=== PATIENT | male | born 1970 | race Caucasian/White ===

== ENCOUNTER → 2016-08-02 | Outpatient (CLI) | payer BC ==
[~2016-08-02] MED LIST: ADVIN50050; ALBU1AER9; CZR50 PO; FLNIN NAE; MONT1TAB3 PO; MULT-506 PO; OMEG10007 PO; OMEP40CA41 PO; SNG10 PO; SYMIN160 INH; VNTHFA/IN INH; ZNTT/150 PO
== END | disposition home or self-care (01) ==
LOC: C.LABBFT 07:43
PROVIDERS: ATTEND Podiatrist
DX: B35.1 Tinea unguium (principal)

== ENCOUNTER 2017-01-23 15:39 | Emergency (ER) | payer BC, OTHER ==
[~2017-01-23] VITALS: Ht 180.3 cm; Wt 92.8 kg
[~2017-01-23 15:39] MED LIST changes: -CZR50 PO; -MONT1TAB3 PO; -MULT-506 PO; -OMEG10007 PO; -OMEP40CA41 PO; -SYMIN160 INH; -VNTHFA/IN INH
[2017-01-23 15:44] VITALS: TEMP 37; Ht 180.3 cm; Wt 92.8 kg
[2017-01-23] MEDS ORDERED: ALUMINUM/MAGNESIUM SUSP 30 ML UDC PO STA (17:41)
[2017-01-23] MEDS ORDERED: PANTOprazole SOD 40 MG TAB PO STA (17:41)
[2017-01-23 17:49] VITALS: O2SAT 95
--- NOTE | 2017-01-23 18:03 | EMERGENCY ROOM VISIT NOTE ---
History Report prepared by Alexa: Nanette Guevara Under the Supervision of: Dr. William Nagel D.O. First contact with patient: 17:15 Chief Complaint: CHEST PAIN Stated Complaint: CHEST PAIN - TROUBLE BREATHING Nursing Triage Summary: Patient has a history of asthma; thought he had a chest cold as he was short of breath more than normal; he has a nonproductive and dry cough. Patient developed chest pains about a week ago that come and go throughout the day. Patient reports that the pain is a pressure, sometimes a stabbing sensation in the center of his chest. The pain will sometimes radiate into both of his shoulders. Patient believes it could be anxiety related. History of Present Illness The patient is a 62 year old male who presents to the Emergency Room with complaints of intermittent chest tightness beginning 1 week ago. The patient states that he has been having chest pain that moves from the center of his chest to the left side and occasionally radiates to the left arm. He reports that his arm pain is a dull ache and is currently present. He notes that he has a history of asthma and has been using his inhaler more frequently as he has had shortness of breath that is worse with exertion. The patient states that his chest pain has been coming every few hours and happens a few times a day. He complains of shortness of breath and cough. He notes that he has been having worsened hypertension for the last 6 weeks. He denies any recent trips, back pain, and vomiting. The patient states that he has a history of GERD. He reports that his father had a stent placed when he was in his 60s. Source of History: patient Onset: 1 week ago Position: chest Quality: other (tightness) Modifying Factors (Worsening): exertion Associated Symptoms: + SOB, No vomiting, No back pain Note: Pt complains of left arm pain. He denies any recent trips. Review of Systems See HPI for pertinent positives & negatives. A total of 10 systems reviewed and were otherwise negative. Past Medical & Surgical Medical Problems: (1) Asthma Family History Stent Social History Smoking Status: Never Smoker Smokeless Tobacco Use: No Alcohol Use: occasionally Drug Use: none Marital Status: single Housing Status: lives with family Occupation Status: employed Current/Historical Medications Scheduled Budesonide/Formoterol Fumarate (Symbicort 160/4.5 Inhaler ), 2 PUFFS INH BID Fish Oil ([place]-3), 1 CAP PO AMPM Montelukast Sodium (Singulair), 10 MG PO DAILY Multivitamin (Multivitamin), 1 TAB PO DAILY Omeprazole (Prilosec), 40 MG PO DAILY Ranitidine (Zantac), 150 MG PO DAILY Scheduled PRN Albuterol Hfa (Ventolin Hfa), 2 PUFFS INH Q6H PRN for SOB/Wheezing Allergies Coded Allergies: No Known Allergies (Unverified , 01/23/17) Physical Exam Vital Signs Date Time Temp Pulse Resp B/P (MAP) Pulse Ox O2 Delivery O2 Flow Rate FiO2 01/23/17 20:00 62 15 125/83 98 01/23/17 19:15 69 01/23/17 18:32 68 20 132/79 98 Room Air 01/23/17 17:49 95 Room Air 01/23/17 17:48 95 Room Air 01/23/17 15:44 37.0 76 18 146/87 95 Room Air 01/23/17 15:44 95 Room Air Physical Exam GENERAL: Patient is awake, alert, and in no acute distress. Patient is resting comfortably and showing no signs of anxiety EYES: The conjunctivae are clear. The pupils are round and reactive. EARS, NOSE, MOUTH AND THROAT: The nose is without any evidence of any deformity. Mucous membranes are moist tongue is midline NECK: The neck is nontender and supple. RESPIRATORY: Normal respiratory effort is noted there is no evidence of wheezing rhonchi or rales CARDIOVASCULAR: Regular rate and rhythm noted there no murmurs rubs or gallops normal S1 normal S2 GASTROINTESTINAL: The abdomen is soft. Bowel sounds are present in all quadrants. Abdomen is nontender MUSCULOSKELETAL/EXTREMITIES: There is no evidence of gross deformity full range of motion is noted in the hips and shoulders SKIN: There is no obvious evidence of any rash. There are no petechiae, pallor or cyanosis noted. NEUROLOGIC: Patient is awake alert and oriented x3 Medical Decision & Procedures ER Provider Diagnostic Interpretation: X-ray results as stated below per interpretation by me and the radiologist. CHEST ONE VIEW PORTABLE FINDINGS: The heart is normal in size. There is mild hyperexpansion. There is no focal pulmonary consolidation. There is no failure. There are no pleural effusions. There is mild chronic prominence of the left hilum.[ IMPRESSION: No active disease in the chest. Electronically signed by: Dion Browning M.D. 01/23/2017 6:23 PM Dictated Date/Time: 01/23/2017 6:21 PM Laboratory Results 01/23/17 18:18 Red Blood Count 5.33, Mean Corpuscular Volume 85.9, Mean Corpuscular Hemoglobin 29.3, Mean Corpuscular Hemoglobin Concent 34.1, Mean Platelet Volume 9.7, Neutrophils (%) (Auto) 61.7, Lymphocytes (%) (Auto) 26.5, Monocytes (%) (Auto) 7.3, Eosinophils (%) (Auto) 3.5, Basophils (%) (Auto) 0.8, Neutrophils # (Auto) 3.86, Lymphocytes # (Auto) 1.66, Monocytes # (Auto) 0.46, Eosinophils # (Auto) 0.22, Basophils # (Auto) 0.05 01/23/17 18:18 Test 01/23/17 18:18 01/23/17 18:23 White Blood Count 6.26 K/uL (4.8-10.8) Red Blood Count 5.33 M/uL (4.7-6.1) Hemoglobin 15.6 g/dL (14.0-18.0) Hematocrit 45.8 % (42-52) Mean Corpuscular Volume 85.9 fL (80-100) Mean Corpuscular Hemoglobin 29.3 pg (25-34) Mean Corpuscular Hemoglobin Concent 34.1 g/dl (32-36) Platelet Count 172 K/uL (130-400) Mean Platelet Volume 9.7 fL (7.4-10.4) Neutrophils (%) (Auto) 61.7 % Lymphocytes (%) (Auto) 26.5 % Monocytes (%) (Auto) 7.3 % Eosinophils (%) (Auto) 3.5 % Basophils (%) (Auto) 0.8 % Neutrophils # (Auto) 3.86 K/uL (1.4-6.5) Lymphocytes # (Auto) 1.66 K/uL (1.2-3.4) Monocytes # (Auto) 0.46 K/uL (0.11-0.59) Eosinophils # (Auto) 0.22 K/uL (0-0.5) Basophils # (Auto) 0.05 K/uL (0-0.2) RDW Standard Deviation 38.9 fL (36.4-46.3) RDW Coefficient of Variation 12.2 % (11.5-14.5) Immature Granulocyte % (Auto) 0.2 % Immature Granulocyte # (Auto) 0.01 K/uL (0.00-0.02) Anion Gap 9.0 mmol/L (3-11) Est Creatinine Clear Calc Drug Dose 120.6 ml/min Estimated GFR () 119.1 Estimated GFR (Non- 102.8 BUN/Creatinine Ratio 23.9 (10-20) Calcium Level 9.3 mg/dl (8.5-10.1) Total Bilirubin 0.6 mg/dl (0.2-1) Direct Bilirubin 0.1 mg/dl (0-0.2) Aspartate Amino Transf (AST/SGOT) 20 U/L (15-37) Alanine Aminotransferase (ALT/SGPT) 36 U/L (12-78) Alkaline Phosphatase 92 U/L (45-117) Total Protein 6.7 gm/dl (6.4-8.2) Albumin 3.8 gm/dl (3.4-5.0) Lipase 66 U/L (73-393) Bedside Troponin I < 0.030 ng/ml (0-0.045) Laboratory results per my review. Medications Administered Medications (Trade) Dose Ordered Sig/Angela Route Start Time Stop Time Status Last Admin Dose Admin Al Hydroxide/Mg Hydroxide (Maalox Susp) 30 ml NOW STAT PO 01/23/17 17:41 01/23/17 17:44 DC 01/23/17 18:33 30 ML Pantoprazole Sodium (Protonix Tab) 40 mg NOW STAT PO 01/23/17 17:41 01/23/17 17:44 DC 01/23/17 18:33 40 MG ECG Indication: chest pain Rate (beats per minute): 69 Rhythm: normal sinus Findings: no ectopy, other (no ST segment abnormalities) Comparison ECG Date: 12/02/09 Change: no significant change ED Course 1714: The patient was evaluated in room C10. A complete history and physical examination were performed. 1740: Protonix Tab 40mg PO, Maalox Susp 30ml PO. 1919: I reevaluated and updated the patient. He is ready to go home. 1924: Upon reevaluation, the patient is doing well. I discussed the results and treatment plan with the patient. He verbalized agreement of the treatment plan. The patient was discharged home. Medical Decision Differential diagnosis: Etiologies such as cardiac ischemia, aortic dissection, pulmonary embolism, pneumonia, pneumothorax, musculoskeletal, infections, pericarditis, myocarditis , esophageal rupture, gastrointestinal, as well as others were entertained. The patient has a heart score of 2. Medication Reconciliation: I attest that I have personally reviewed the patient' s current medications list. Blood pressure screening: Patient was found to have an elevated blood pressure and was referred to their primary doctor for recheck and further treatment. The patient is a 46-year-old male who presented to the emergency department for an evaluation of chest discomfort. The patient's chest pain was not exertional. The patient's EKG did not show any acute change or previous. I discussed the patient's laboratory and radiographic studies with him. I also discussed the limitations of the emergency department workup for chest pain. At this time his presentation does not appear to be consistent with an acute coronary syndrome. I recommended that he rest and avoid any strenuous activity. He was also encouraged to call his family doctor in the morning to schedule a follow-up appointment and likely a provocative stress test. He was also encouraged to return to the emergency Department immediately if symptoms change worsen or the need arises. Impression Primary Impression: Left sided chest pain Scribe Attestation The scribe's documentation has been prepared under my direction and personally reviewed by me in its entirety. I confirm that the note above accurately reflects all work, treatment, procedures, and medical decision making performed by me. Departure Information Dispostion Home / Self-Care Prescriptions Omeprazole (PRILOSEC) 40 Mg Cap 40 MG PO DAILY, #30 CAP Prov: William Nagel, DO 01/23/17 Referrals Rodolfo Bhat M.D. (PCP) Forms HOME CARE DOCUMENTATION FORM, IMPORTANT VISIT INFORMATION Patient Instructions ED Chest Pain Atypical Unkn Cause, My [facility] Additional Instructions Call your family doctor in the morning to schedule a follow-up appointment. You may require further studies such as a stress test to further evaluate the cause of your chest pain. Avoid any strenuous activity. Continue all medications as prescribed. Return to the emergency department immediately if symptoms change worsen or the need arises.
--- NOTE | 2017-01-23 18:24 | DIAGNOSTIC IMAGING REPORT ---
CHEST ONE VIEW PORTABLE CLINICAL HISTORY: Atypical chest pain COMPARISON STUDY: No previous studies for comparison. FINDINGS: The heart is normal in size. There is mild hyperexpansion. There is no focal pulmonary consolidation. There is no failure. There are no pleural effusions. There is mild chronic prominence of the left hilum.[ IMPRESSION: No active disease in the chest. Electronically signed by: Dion Browning M.D. 01/23/2017 6:23 PM Dictated Date/Time: 01/23/2017 6:21 PM
[2017-01-23 18:43] LABS: BASO % 0.8 %; BASO ABS # 0.05 K/uL (0-0.2); COMPLETE YES; EOS % 3.5 %; HEMATOCRIT 45.8 % (42-52); IG% 0.2 %; LYMPH % 26.5 %; LYMPH ABS # 1.66 K/uL (1.2-3.4); MEAN CELL VOLUME 85.9 fL (80-100); MEAN CORPUSCULAR HEMOGLOBIN 29.3 pg (25-34); MEAN CORPUSCULAR HGB CONC 34.1 g/dl (32-36); MEAN PLATELET VOLUME 9.7 fL (7.4-10.4); MONO % 7.3 %; NEUT % 61.7 %; PLATELET COUNT 172 K/uL (130-400); RED BLOOD COUNT 5.33 M/uL (4.7-6.1); WHITE BLOOD COUNT 6.26 K/uL (4.8-10.8)
[2017-01-23] MEDS ORDERED: SYMIN160 INH (18:54)
[2017-01-23] MEDS ORDERED: MONT1TAB3 PO (18:55)
[2017-01-23] MEDS ORDERED: VNTHFA/IN INH (18:56)
[2017-01-23] MEDS ORDERED: MULT-506 PO (18:57)
[2017-01-23] MEDS ORDERED: OMEG10007 PO (18:58)
[2017-01-23 19:09] LABS: BUN/CREATININE RATIO 23.9 (10-20); CALCIUM 9.3 mg/dl (8.5-10.1); CREATININE 0.9 mg/dl (0.60-1.40); POTASSIUM 3.8 mmol/L (3.5-5.1)
[2017-01-23] MEDS ORDERED: OMEP40CA41 PO (19:17)
[2017-01-23 20:00] VITALS: BP 125/83; PULSE 62; O2SAT 98
[2017-04-10] MEDS ORDERED: CZR50 PO (09:04)
== END 2017-01-23 20:02 | disposition home or self-care (01) ==
LOC: C.EDB 15:39 → C.EDC 20:02
DX: R07.89 Other chest pain (principal); J45.909 Unspecified asthma, uncomplicated; Z79.899 Other long term (current) drug therapy

== ENCOUNTER → 2017-02-02 | Outpatient (CLI) | payer BC ==
[~2017-02-02] MED LIST changes: -ADVIN50050; -ALBU1AER9; +CZR50 PO; -FLNIN NAE; +MONT1TAB3 PO; +MULT-506 PO; +OMEG10007 PO; +OMEP40CA41 PO; -SNG10 PO; +SYMIN160 INH; +VNTHFA/IN INH
[2017-02-02 16:34] LABS: BLOOD UREA NITROGEN 20 mg/dl (7-18); CALCIUM 9.2 mg/dl (8.5-10.1); CARBON DIOXIDE 28 mmol/L (21-32); CHLORIDE 108 mmol/L (98-107); CREATININE 0.97 mg/dl (0.60-1.40); GLUCOSE 103 mg/dl (70-99); SODIUM 141 mmol/L (136-145)
== END | disposition home or self-care (01) ==
LOC: C.LABBFT 16:30
PROVIDERS: ATTEND Physician Assistant Medical
DX: I10 Essential (primary) hypertension (principal)

== ENCOUNTER → 2017-02-23 | Outpatient (CLI) | payer BC ==
[~2017-02-23] MED LIST changes: -OMEP40CA41 PO
[2017-02-23 18:06] LABS: BLOOD UREA NITROGEN 18 mg/dl (7-18); BUN/CREATININE RATIO 18.8 (10-20); CARBON DIOXIDE 28 mmol/L (21-32); CHLORIDE 107 mmol/L (98-107); CREATININE 0.97 mg/dl (0.60-1.40); GLUCOSE 85 mg/dl (70-99); POTASSIUM 3.9 mmol/L (3.5-5.1); SODIUM 140 mmol/L (136-145)
== END | disposition home or self-care (01) ==
LOC: C.LABBFT 10:42
PROVIDERS: ATTEND Physician Assistant Medical
DX: I10 Essential (primary) hypertension (principal)

== ENCOUNTER → 2017-04-11 | Day surgery (SDC) | payer BC ==
[2017-04-10 09:04] VITALS: Ht 180.3 cm; Wt 91.8 kg
[~2017-04-11] VITALS: Ht 180.3 cm; Wt 91.8 kg
[~2017-04-11] MED LIST changes: +FENTANYL CITRATE INJ 50 MCG/1 ML 2 ML VIAL ONE; +LIDOCAINE HCL 2% 2 ML VIAL (20MG/ML) ONE; +MIDAZOLAM HCL 1 MG/ML 2ML VIAL ONE; +PROPOFOL IV EMULSION 10 MG/ML 20 ML VIAL IV ONE
[2017-04-11 11:35] VITALS: TEMP 36.8
--- NOTE | 2017-04-11 11:39 | Endo History and Physical ---
History & Physical Date of Service: Apr 11, 2017. Chief Complaint: GERD Referring Physician: Dr. Rodolfo Bhat History of Present Illness 46 yo CM who presents for EGD secondary to GERD Past Surgical History Hx Cardiac Surgery: No Hx Internal Defibrillator: No Hx Pacemaker: No Hx Abdominal Surgery: Yes (APPY,) Hx of Implantable Prosthesis: No Hx Post-Op Nausea and Vomiting: No Hx Cancer Surgery: No Hx Thoracic Surgery: No Hx Orthopedic: No Hx Urinary Tract Surgery: No Family History None Social History Smoking Status: Never Smoker Hx Substance Use: No Hx Alcohol Use: No Allergies Coded Allergies: No Known Allergies (Verified , 04/11/17) Current Medications Reported Home Medications Medications Dose Route/Sig Max Daily Dose Days Date Category Losartan Potassium 50 Mg Tab 50 Mg PO QPM 04/10/17 Reported [place]-3 (Fish Oil) 1 Ea Cap 1 Cap PO BID 01/23/17 Reported Multivitamin (Multivitamins) Tab 1 Tab PO QAM 01/23/17 Reported Ventolin Hfa (Albuterol) 200 Puffs/33289 Mcg Aers 2 Puffs INH Q6H PRN 01/23/17 Reported Singulair (Montelukast Sodium) 10 Mg Tab 10 Mg PO QPM 01/23/17 Reported Symbicort 160/4.5 Inhaler (Budesonide/Formoterol Fumarate) Aero 2 Puffs INH BID 01/23/17 Reported Zantac (Ranitidine HCl) 150 Mg Tab 150 Mg PO BID 03/18/08 Reported Vital Signs Weight (Kilograms): 91.82 Height (Feet): 5 Height (Inches): 11 Date Time Temp Pulse Resp B/P (MAP) Pulse Ox O2 Delivery O2 Flow Rate FiO2 04/11/17 11:35 36.8 60 18 135/74 (94) 98 Room Air Physical Exam General Appearance: WD/WN, no apparent distress Respiratory/Chest: Auscultation: breath sounds normal Cardiovascular: Heart Auscultation: RRR Abdomen: Bowel Sounds: normal Inspection & Palpation: soft, non-distended, no tenderness, guarding & rebound Assessment and Plan Assessment: 46 yo CM who presents for EGD secondary to GERD Plan: Proceed with EGD.
--- NOTE | 2017-04-11 12:45 | Discharge Instructions ---
Endoscopy Patient Instructions Date / Procedure(s) Performed Apr 11, 2017. EGD Allergy Information Coded Allergies: No Known Allergies (Verified , 04/11/17) Discharge Date / Findings Apr 11, 2017. Reflux esophagitis s/p biopsies Medication Instructions 1) Start Protonix 40mg by mouth each morning 1/2 hour prior to breakfast. 2) Take Ranitidine 150 mg by mouth each evening at bedtime. 3) OK to resume all medications today as prescribed Reported Home Medications Medications Dose Route/Sig Max Daily Dose Days Date Category Losartan Potassium 50 Mg Tab 50 Mg PO QPM 04/10/17 Reported [place]-3 (Fish Oil) 1 Ea Cap 1 Cap PO BID 01/23/17 Reported Multivitamin (Multivitamins) Tab 1 Tab PO QAM 01/23/17 Reported Ventolin Hfa (Albuterol) 200 Puffs/09243 Mcg Aers 2 Puffs INH Q6H PRN 01/23/17 Reported Singulair (Montelukast Sodium) 10 Mg Tab 10 Mg PO QPM 01/23/17 Reported Symbicort 160/4.5 Inhaler (Budesonide/Formoterol Fumarate) Aero 2 Puffs INH BID 01/23/17 Reported Zantac (Ranitidine HCl) 150 Mg Tab 150 Mg PO BID 03/18/08 Reported Provider Instructions Activity Restrictions - No exercising or heavy lifting for 24 hours. - Do not drink alcohol the day of the procedure. - Do not drive a car or operate machinery until the day after the procedure. - Do not make any important decisions or sign important papers in 24 hours after the procedure. Following Day: - Return to full activity which may include returning to work/school. Diet Start your diet with liquids and light foods (jello, soup, juice, toast). Then eat your usual diet if not nauseated. Treatment For Common After Affects For mild abdominal pain, bloating, or excessive gas: - Rest - Eat lightly - Lie on right side Follow-Up Information Follow-up with Dr. Rodolfo Bhat as scheduled Anesthesia Information What You Should Know You have had a procedure that required some medicine to reduce anxiety and discomfort. This treatment is called moderate sedation. After receiving the treatment, you may be sleepy, but you will be able to breathe on your own. The effects of the treatment may last for several hours. Follow these instructions along with Activity/Diet recommendations noted above: * Do NOT do anything where dizziness or clumsiness would be dangerous. * Rest quietly at home today, then you can be up and about tomorrow. * Have a responsible person stay with you the rest of today. * You may have had an I.V. today. If so, you may take the dressing off later today. Recommendations Call your doctor if: * Trouble breathing * Continuous vomiting for more than 24 hours * Temperature above 101 degrees * Severe abdominal pain or bloating * Pain not relieved by pain medicine ordered * There is increased drainage or redness from any incision * A large amount of rectal bleeding greater than 2-3 tablespoons. (If you had a polyp/s removed or have hemorrhoids, a small amount of blood - from the rectum is to be expected.) * You have any unanswered questions or concerns. IN THE EVENT OF A SERIOUS EMERGENCY, GO TO THE NEAREST EMERGENCY ROOM Your discharge instructions were prepared by provider Julius Bravo. Patient Instructions Signature Page Kishan Khan Patient (or Guardian) Signature/Date: I have read and understand the instructions given to me by my caregivers. Caregiver/RN/Doctor Signature/Date: The above-named patient and/or guardian has received patient instructions on this date. + Original Patient Signature Page (only) stays with chart. Please make copy for patient.
--- NOTE | 2017-04-11 12:47 | GI REPORT ---
Procedure Date: 04/11/2017 12:08 PM THIS REPORT HAS BEEN AMENDED Addendum Number: 1 Addendum Date: 04/11/2017 1:02:00 PM Start Protonix 40mg by mouth each morning 1/2 hour prior to breakfast. Take Zantac 150mg by mouth each evening at bedtime. Procedure: Upper GI endoscopy Indications: Suspected gastro-esophageal reflux disease Medicines: Monitored Anesthesia Care Complications: No immediate complications. Estimated Blood Loss: Estimated blood loss: none. Procedure: Pre-Anesthesia Assessment: - Prior to the procedure, a History and Physical was performed, and patient medications and allergies were reviewed. The patient's tolerance of previous anesthesia was also reviewed. The risks and benefits of the procedure and the sedation options and risks were discussed with the patient. All questions were answered, and informed consent was obtained. Prior Anticoagulants: The patient has taken no previous anticoagulant or antiplatelet agents. ASA Grade Assessment: III - A patient with severe systemic disease. After reviewing the risks and benefits, the patient was deemed in satisfactory condition to undergo the procedure. After obtaining informed consent, the endoscope was passed under direct vision. Throughout the procedure, the patient's blood pressure, pulse, and oxygen saturations were monitored continuously. The scope was introduced through the mouth, and advanced to the second part of duodenum. The upper GI endoscopy was accomplished without difficulty. The patient tolerated the procedure well. Findings: LA Grade B (one or more mucosal breaks greater than 5 mm, not extending between the tops of two mucosal folds) esophagitis with no bleeding was found. Biopsies were taken with a cold forceps for histology. The stomach was normal. The examined duodenum was normal. Impression: - LA Grade B reflux esophagitis. Biopsied. - Normal stomach. - Normal examined duodenum. Recommendation: - Resume previous diet. - Continue present medications. - Await pathology results. - Return to primary care physician as previously scheduled. Julius Bravo, DO 04/11/2017 12:47:28 PM This report has been signed electronically. Note Initiated On: 04/11/2017 12:08 PM I attest to the content of the Intraoperative Record and orders documented therein, exceptions below Julius Bravo, DO 04/11/2017 1:03:13 PM This report has been signed electronically.
--- NOTE | 2017-04-11 12:54 | Anesthesiology Progress Note ---
Anesthesia Post Op Note Date & Time Apr 11, 2017 at 12:54 Vital Signs Pain Intensity: 0 Vital Signs Past 12 Hours Date Time Temp Pulse Resp B/P (MAP) Pulse Ox O2 Delivery O2 Flow Rate FiO2 04/11/17 12:45 64 16 126/61 (82) 95 Room Air 04/11/17 11:35 36.8 60 18 135/74 (94) 98 Room Air Notes Mental Status: alert / awake / arousable, participated in evaluation Pt Amnestic to Procedure: Yes Nausea / Vomiting: adequately controlled Pain: adequately controlled Airway Patency, RR, SpO2: stable & adequate BP & HR: stable & adequate Hydration State: stable & adequate Anesthetic Complications: no major complications apparent
[2017-04-11 13:15] VITALS: BP 131/68; PULSE 61; O2SAT 97
== END | disposition home or self-care (01) ==
LOC: C.GI 11:20
PROVIDERS: ATTEND Internal Medicine
DX: K21.0 Gastro-esophageal reflux disease with esophagitis (principal); J44.9 Chronic obstructive pulmonary disease, unspecified; E66.9 Obesity, unspecified; Z90.49 Acquired absence of other specified parts of digestive tract

== ENCOUNTER → 2017-05-25 | Outpatient (CLI) | payer BC ==
[~2017-05-25] MED LIST changes: -FENTANYL CITRATE INJ 50 MCG/1 ML 2 ML VIAL ONE; -LIDOCAINE HCL 2% 2 ML VIAL (20MG/ML) ONE; -MIDAZOLAM HCL 1 MG/ML 2ML VIAL ONE; -PROPOFOL IV EMULSION 10 MG/ML 20 ML VIAL IV ONE
[2017-05-25 12:45] LABS: BASO % 0.7 %; BASO ABS # 0.05 K/uL (0-0.2); COMPLETE YES; EOS % 3.9 %; HEMATOCRIT 45.7 % (42-52); IG% 0.1 %; LYMPH % 20.1 %; MEAN CELL VOLUME 89.4 fL (80-100); MEAN CORPUSCULAR HEMOGLOBIN 30.3 pg (25-34); MEAN CORPUSCULAR HGB CONC 33.9 g/dl (32-36); MEAN PLATELET VOLUME 10.2 fL (7.4-10.4); MONO % 6.8 %; NEUT % 68.4 %; PLATELET COUNT 207 K/uL (130-400); RED BLOOD COUNT 5.11 M/uL (4.7-6.1); WHITE BLOOD COUNT 6.95 K/uL (4.8-10.8)
[2017-05-25 12:47] LABS: ALT/SGPT 27 U/L (12-78); AST/SGOT 18 U/L (15-37); BLOOD UREA NITROGEN 19 mg/dl (7-18); BUN/CREATININE RATIO 21.7 (10-20); CARBON DIOXIDE 30 mmol/L (21-32); CHLORIDE 107 mmol/L (98-107); GLUCOSE 91 mg/dl (70-99); POTASSIUM 4.5 mmol/L (3.5-5.1); SODIUM 140 mmol/L (136-145)
[2017-05-25 12:51] LABS: ALB/GLOB RATIO 1.2 (0.9-2); ALKALINE PHOSPHATASE 97 U/L (45-117); CHOLESTEROL 161 mg/dl (0-200); CHOLESTEROL/HDL RATIO 3.6; HDL CHOLESTEROL 45 mg/dl; LDL CHOLESTEROL CALCULATED 101 mg/dl; TRIGLYCERIDES 73 mg/dl (0-150); VERY LOW DENSITY LIPOPROT CALC 15 mg/dl
== END | disposition home or self-care (01) ==
LOC: C.LABBFT 08:49
PROVIDERS: ATTEND Physician Assistant Medical
DX: Z00.00 Encounter for general adult medical examination without abnormal findings (principal)

== ENCOUNTER 2023-08-07 05:03 | Observation (INO) ==
--- NOTE | 2023-07-13 14:30 | PAT Medication Instructions ---
Medication Instructions Date of Service July 13, 2023 Home Medications Medication Instructions Recorded albuterol sulfate 90 mcg/actuation 1 puff inhalation Q6H PRN 06/29/20 aerosol inhaler (ProAir HFA) shortness of breath or wheezing #18 grams montelukast 10 mg tablet 10 mg PO QPM #90 tabs 08/25/21 losartan 50 mg tablet 50 mg PO HS #30 tabs 01/19/22 benralizumab 30 mg/mL subcutaneous 30 mg subcut .COMPLEX #1 mL 09/28/22 syringe (Fasenra) diclofenac sodium 75 mg 75 mg PO BID PRN pain #60 tabs 01/13/23 tablet,delayed release fluticasone fur. 100 mcg-umeclid 1 inh inhalation QAM #60 ea 04/21/23 62.5 mcg-vilant 25 mcg inhalat.powder (Trelegy Ellipta) pantoprazole 40 mg tablet,delayed See Rx Instructions .Route 06/12/23 release .COMPLEX #60 tabs Medication List: multivitamin (Daily Multi-Vitamin tablet) 1 tab PO QAM omega-3 fatty acids 1,000 mg capsule (Fish Oil Concentrate) 1,000 mg PO QAM albuterol sulfate 90 mcg/actuation aerosol inhaler (ProAir HFA) 1 puff inhalation Q6H PRN montelukast 10 mg tablet 10 mg PO QPM losartan 50 mg tablet 50 mg PO HS gabapentin 300 mg tablet 300 mg PO BID ibuprofen 200 mg tablet 400 mg PO Q6H PRN Pain benralizumab 30 mg/mL subcutaneous syringe (Fasenra) 30 mg SC diclofenac sodium 75 mg tablet,delayed release 75 mg PO BID PRN fluticasone fur. 100 mcg-umeclid 62.5 mcg-vilant 25 mcg inhalat.powder (Trelegy Ellipta) 1 inh inhalation QAM pantoprazole 40 mg 1 tab PO BID MEDICATION INSTRUCTIONS: Continue as directed fluticasone fur. 100 mcg-umeclid 62.5 mcg-vilant 25 mcg inhalat.powder (Trelegy Ellipta) 1 inh inhalation QAM albuterol sulfate 90 mcg/actuation aerosol inhaler (ProAir HFA) 1 puff inhalation Q6H PRN (use if needed; BRING TO HOSPITAL) ASK your surgeon for instructions diclofenac sodium 75 mg tablet,delayed release 75 mg PO BID PRN ibuprofen 200 mg tablet 400 mg PO Q6H PRN Pain STOP taking 2 weeks before surgery omega-3 fatty acids 1,000 mg capsule (Fish Oil Concentrate) 1,000 mg PO QAM DO NOT take the morning of surgery multivitamin (Daily Multi-Vitamin tablet) 1 tab PO QAM Take morning of surgery With a small sip of water, OTHERWISE NOTHING TO EAT OR DRINK AFTER MIDNIGHT: pantoprazole 40 mg 1 tab PO BID gabapentin 300 mg tablet 300 mg PO BID Take evening before surgery pantoprazole 40 mg 1 tab PO BID montelukast 10 mg tablet 10 mg PO QPM losartan 50 mg tablet 50 mg PO HS gabapentin 300 mg tablet 300 mg PO BID Other Notes ASK PRESCRIBER FOR INSTRUCTIONS: benralizumab 30 mg/mL subcutaneous syringe (Fasenra) 30 mg SC If you have any questions please call us at [phone] or [phone] or [phone] or [phone]
--- NOTE | 2023-07-24 09:31 | Anesthesiology Consultation ---
Date of Service July 24, 2023 Assessment & Plan (1) Encounter for pre-operative examination: - Outpatient joint assessment: Pt currently scheduled for inpatient pathway. If surgeon requests review for outpatient joint pathway, patient is an acceptable candidate for outpatient joint program from anesthesia standpoint pending surgeon's office assessment that patient is motivated, has good support and completes [facility] preop requirements. - Infectious disease screening: Per assessment on 07/24/23: tested Covid positive 07/20/23 (but patient reports she is already been out of quarantine given symptom onset was 07/16/23). Patient greater than 5 days since symptom onset. He is asymptomatic. Patient requesting preop Covid test done at PAT 07/24/23- result was negative. DOS not until 08/07/23. Patient advised to contact surgeon/PAT if development of Covid-related symptoms prior to DOS. Chart Review Chart Review: Acceptable Risk for Surgery and Patient seen in Pre Admission Testing Teaching & Discussion Pre-Anesthesia Teaching/Discussion Notes: Instructed NPO after midnight before surgery,except medications with 15 cc of water. Medication instructions provided according to the [facility] guidelines. History Surgery Operation Date: 08/07/23 07:00 Proposed Procedures p Left Total Hip Arthroplasty - Kaz Hernandez MD Height/Weight Height: 5 ft 10 in Weight: 91.5 kg Allergies Allergy/AdvReac Type Severity Reaction Status Date / Time diclofenac AdvReac Intermediate Gastrointestinal Verified 07/24/23 09:42 Upset Medications Home Medications Medication Instructions Recorded Confirmed Last Taken multivitamin (Daily Multi-Vitamin 1 tab PO QAM 12/21/18 07/13/23 11/26/22 tablet) omega-3 fatty acids 1,000 mg 1,000 mg PO QAM 12/21/18 07/13/23 11/26/22 capsule (Fish Oil Concentrate) albuterol sulfate 90 mcg/actuation 1 puff inhalation Q6H PRN 06/29/20 07/13/23 11/22/22 aerosol inhaler (ProAir HFA) shortness of breath or wheezing #18 grams montelukast 10 mg tablet 10 mg PO QPM #90 tabs 08/25/21 07/13/23 11/26/22 losartan 50 mg tablet 50 mg PO HS #30 tabs 01/19/22 07/13/23 11/26/22 gabapentin 300 mg tablet 300 mg PO BID 09/23/22 07/13/23 11/26/22 ibuprofen 200 mg tablet 400 mg PO Q6H PRN Pain 09/23/22 07/13/23 11/26/22 benralizumab 30 mg/mL subcutaneous 30 mg subcut .COMPLEX #1 mL 09/28/22 07/13/23 Unknown syringe (Fasenra) diclofenac sodium 75 mg 75 mg PO BID PRN pain #60 tabs 01/13/23 07/13/23 Unknown tablet,delayed release fluticasone fur. 100 mcg-umeclid 1 inh inhalation QAM #60 ea 04/21/23 07/13/23 Unknown 62.5 mcg-vilant 25 mcg inhalat.powder (Trelegy Ellipta) pantoprazole 40 mg tablet,delayed See Rx Instructions .Route 06/12/23 07/13/23 Unknown release .COMPLEX #60 tabs Past Medical History Medical History Asthma Hypertension Arthritis of left hip Allergic rhinitis History of COVID-19 05/2022- fever, shortness of breath, cough > resolved Plantar fasciitis Occasional flares GERD (gastroesophageal reflux disease) Controlled Exercise / Class Metabolic Activity III < 4 Walking/Shop/Light housework (one FS (no CP, occasional SOB)) Past Family History Family History Family/Other Diabetes Hypertension Father Skin cancer Prostate cancer Diabetes Coronary heart disease Other Encounter for pre-operative examination No family history of adverse response to anesthesia Denies family history of Ovarian cancer Myocardial infarction Breast cancer Colorectal cancer Past Surgical History Surgical History History of colonoscopy History of wisdom tooth extraction History of esophagogastroduodenoscopy (EGD) S/P tooth extraction S/P appendectomy Past Anesthesia History No Hx of Anesthesia Complications and No Family Hx of Anesthesia Complications History of PONV No Hx of PONV and Hx of Motion Sickness (occasional) Social History Smoking Status: Never smoker Do You Dip or Chew Tobacco: No Hx Alcohol Use: No Hx Substance Use: No substance use type: does not use Review of Systems Patient denies chest pain, shortness of breath, dyspnea on exertion, fever, chills, cough, wheezing, palpitations. Physical Exam Vital Signs VITALS BP 124/77 P 58 TEMP 98.6 SP02 98%RA RESP 18 PHYSICAL Full cervical extension range of motion. Full TMJ range of motion. TMD 3.5 finger breaths Mallampati Score 2 Dentition: missing molar Lungs: clear throughout to auscultation Cardiac: regular rate and rhythm, no murmurs noted Spine: normal Carotid arteries: negative bruit Extremities: no LE edema Lab Results Anesthesia Preop Results Results Anesthesia Widget: WBC 3.79 K/ul (4.8-10.8) L 07/24/23 Hgb 14.6 g/dl (14.0-18.0) 07/24/23 Hct 42.8 % (42.0-52.0) 07/24/23 Plt 155 K/uL (130-400) 07/24/23 Na 138 mmol/L (136-145) 07/24/23 K 4.3 mmol/L (3.5-5.1) 07/24/23 Cl 105 mmol/L (98-107) 07/24/23 CO2 28 mmol/L (21-32) 07/24/23 BUN 26 mg/dl (6-23) H 07/24/23 Creat 1.06 mg/dl (0.6-1.4) 07/24/23 Glucose Level 94 mg/dl (70-99(Fasting)) 07/24/23 PT 11.4 Seconds (9.0-12.0) 07/24/23 PTT 29 Seconds (21-31) 07/24/23 INR 1.0 (0.9-1.1) 07/24/23 Blood Type O Positive 07/24/23 Antibody Screen NEGATIVE 07/24/23 Testing Laboratory Results *Low WBC- preop testing forwarded to PCP for continuity of care* Electrocardiogram Date: 07/24/23 SB at 56bpm. "Otherwise normal ECG" Chest X-Ray Date: 07/24/23 FINDINGS: No lines and tubes are seen. Calcified aortic knob is seen. The lungs are clear. No evidence of pleural effusion or pneumothorax. IMPRESSION: No acute chest disease.
--- NOTE | 2023-08-05 09:07 | History & Physical Report ---
Date of Service August 05, 2023 Assessment & Plan (1) Arthritis of left hip: 53-year-old male with advanced left hip arthritis. He is failed conservative measures. It is really affecting his quality life and he would like to have his left hip fixed. He does have some right hip arthritis but much less severe and less symptomatic. Plan: Explained treatment options with the patient. He would like to proceed with left hip replacement. The risks Mente of left total hip replacement were explained the patient clued but not limited to DVT PE infection neurological and vascular bleeding palm pain limb range of motion sepsis fairly with symptoms incomplete relief of symptoms need for further surgery in future excetra. The patient understands and desires to proceed. Informed consent was obtained. Plan on DVT prophylaxis including thigh-high teds, SCDs, aspirin twice a day. He is can use energy physical therapy for outpatient/home therapy. History of Present Illness Chief Complaint: . Progressive left hip pain and discomfort. Primary Care Provider: Elly Hawkins MD . Patient is a 53-year-old gentleman who presents for treatment of his left hip. He is better each year and half to 2-year history of gradually progressive increased left hip pain and discomfort. There is a strong family history of a hip and joint arthritis. Describes groin pain thigh pain. He has had some injections provide some temporary relief only. He is having more difficulty getting around. He works at [employer] and having difficulty standing for prolonged periods of time. Denies any numbness or back or radicular symptoms. He like to have his left hip fixed. Allergies Allergy/AdvReac Type Severity Reaction Status Date / Time diclofenac AdvReac Intermediate Gastrointestinal Verified 08/02/23 15:36 Upset Home Medications Medication Instructions Recorded Confirmed Type multivitamin (Daily Multi-Vitamin 1 tab PO QAM 12/21/18 08/02/23 History tablet) omega-3 fatty acids 1,000 mg 1,000 mg PO QAM 12/21/18 08/02/23 History capsule (Fish Oil Concentrate) albuterol sulfate 90 mcg/actuation 1 puff inhalation Q6H PRN 06/29/20 08/02/23 Rx aerosol inhaler (ProAir HFA) shortness of breath or wheezing #18 grams montelukast 10 mg tablet 10 mg PO QPM #90 tabs 08/25/21 08/02/23 Rx losartan 50 mg tablet 50 mg PO HS #30 tabs 01/19/22 08/02/23 Rx gabapentin 300 mg tablet 300 mg PO BID 09/23/22 08/02/23 History ibuprofen 200 mg tablet 400 mg PO Q6H PRN Pain 09/23/22 08/02/23 History benralizumab 30 mg/mL subcutaneous 30 mg subcut .COMPLEX #1 mL 09/28/22 08/02/23 Rx syringe (Fasenra) diclofenac sodium 75 mg 75 mg PO BID PRN pain #60 tabs 01/13/23 08/02/23 Rx tablet,delayed release fluticasone fur. 100 mcg-umeclid 1 inh inhalation QAM #60 ea 04/21/23 08/02/23 Rx 62.5 mcg-vilant 25 mcg inhalat.powder (Trelegy Ellipta) pantoprazole 40 mg tablet,delayed See Rx Instructions .Route 06/12/23 08/02/23 Rx release .COMPLEX #60 tabs Past Med/Surg History Medical History Asthma Hypertension Arthritis of left hip Allergic rhinitis History of COVID-19 05/2022- fever, shortness of breath, cough > resolved Plantar fasciitis Occasional flares GERD (gastroesophageal reflux disease) Controlled Surgical History History of colonoscopy History of wisdom tooth extraction History of esophagogastroduodenoscopy (EGD) S/P tooth extraction S/P appendectomy Family History Family/Other Diabetes Hypertension Father Skin cancer Prostate cancer Diabetes Coronary heart disease Other Encounter for pre-operative examination No family history of adverse response to anesthesia Denies family history of Ovarian cancer Myocardial infarction Breast cancer Colorectal cancer Social History Smoking Status: Never smoker Second Hand Exposure: Yes (as kid); Do You Dip or Chew Tobacco: No; Tobacco Cessation Education Requested by Patient: No Hx Alcohol Use: No Hx Substance Use: No Preferred Language: Lithuanian Communication Ability: Effective Visual Impairment: No Limitations Hearing Ability: Normal Wood Crew 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 Physical Exam . Physical examination was a pleasant healthy middle-age male. He ambulates with a little of a limp. He maybe about a half a centimeter short in the left side compared to the right. He has limited hip motion with pain with internal rotation. Negative straight leg raise. He is neurologically intact. Constitutional WD/WN, vitals as above Respiratory normal respiratory effort, lungs clear to auscultation Cardiovascular RRR, no murmur, no edema Gastrointestinal (Abdomen) normal bowel sounds, soft, nontender, no hepatosplenomegaly Results & Data Results & Data Laboratory Results . Diagnostic Findings . X-rays left hip were reviewed. Shows advanced left hip arthritis but is got complete loss of the superior joint space. He is got some signs of underlying dysplasia. He is got some right hip disease as well but not as severe. PG Care Time/CCT Total # of Minutes Spent Total Time Spent with Patient: Total time spent is greater than 50% in coordination of care (as documented) at patient's floor/unit and/or counseling patient: Coding Level of Care Code None Diagnoses Arthritis of left hip M16.12
[2023-08-07] MEDS ORDERED: dexAMETHasone**PF** 10 MG/ML VIAL IV SCH (06:00)
[2023-08-07] MEDS ORDERED: Scopolamine 1 MG TDSY TD SCH (06:00)
[2023-08-07] MEDS ORDERED: ceFAZolin 2000MG 2,000 MG/15 ML SYR IV SCH (06:00)
[2023-08-07] MEDS ORDERED: LR 60ML/HR IV SCH (06:00)
[2023-08-07] MEDS ORDERED: METOCLOPRAMIDE HCL 10 MG TABLET PO SCH (06:00)
[2023-08-07] MEDS ORDERED: CeleBREX 200 MG CAP PO SCH (06:00)
[2023-08-07] MEDS ORDERED: LR 500ML BOLUS, THEN 15ML/HR IV SCH (06:00)
[2023-08-07] MEDS ORDERED: ACETAMINOPHEN 500 MG TAB PO SCH (06:00)
[2023-08-07] MEDS ORDERED: TRANEXAMIC ACID 1,000 MG **IV Pre-op IV SCH (06:00)
[2023-08-07] MEDS ORDERED: FAMOTIDINE 20 MG TAB PO SCH (06:00)
[2023-08-07] MEDS ORDERED: ROPIVACAINE 0.5% 5 MG/ML 30 ML VIAL ONE (06:12)
[2023-08-07] MEDS ORDERED: BUPIVACAINE/EPINEPHRINE 0.5% MPF 1:200,000 30 ML VIAL ONE (06:37)
[2023-08-07] MEDS ORDERED: NALOXONE HCL 1 MG in SODIUM CHLORIDE 0.9% 1,000 ML IV PRN (06:39)
[2023-08-07] MEDS ORDERED: diphenhydrAMINE 50 MG/ML VIAL IV PRN (06:39)
[2023-08-07] MEDS ORDERED: NALOXONE HCL 0.4 MG/1 ML VIAL/CARP IV PRN ×2 (06:39→09:39)
[2023-08-07] MEDS ORDERED: NALBUPHINE HCL 5 MG in SYRINGE 0 ML IV PRN (06:39)
[2023-08-07] MEDS ORDERED: HYDROmorphone INJ 0.5 MG/0.5 ML SYR IV PRN (06:39)
[2023-08-07] MEDS ORDERED: KETOROLAC 30 MG/ML VIAL IV PRN (06:39)
[2023-08-07] MEDS ORDERED: ePHEDrine sulfate 50 MG/ML AMP IV PRN (06:39)
[2023-08-07] MEDS ORDERED: NALOXONE HCL 0.08 MG in SYRINGE 1.8 ML IV PRN (06:39)
[2023-08-07] MEDS ORDERED: MoRPHine SULFATE 2 MG/ML CARP IV PRN (06:39)
[2023-08-07] MEDS ORDERED: LACTATED RINGER'S 500 ML IV PRN (06:39)
[2023-08-07] MEDS ORDERED: MoRPHine SULFATE PF 1 MG/ML 10 ML AMP/VIAL INT SPINAL ONE (06:39)
[2023-08-07] MEDS ORDERED: ONDANSETRON INJ 2 MG/ML 2 ML VIAL IV PRN (06:39)
[2023-08-07] MEDS ORDERED: PROPOFOL IV EMULSION 10 MG/ML 20 ML VIAL IV ONE ×3 (06:40→08:14)
[2023-08-07] MEDS ORDERED: fentaNYL citrate PF 100 MCG/2 ML VIAL ONE (06:40)
[2023-08-07] MEDS ORDERED: MoRPHine SULFATE PF 1 MG/ML 10 ML AMP/VIAL ONE (06:41)
[2023-08-07] MEDS ORDERED: MIDAZOLAM HCL 1 MG/ML 2ML VIAL ONE (06:41)
[2023-08-07] MEDS ORDERED: NO NARCOTICS OR SEDATIVES SCH (06:45)
[2023-08-07] MEDS ORDERED: DC INTRASPINAL MORPHINE SCH (06:45)
[2023-08-07] MEDS ORDERED: SODIUM CHLORIDE 0.9% 1,000 ML IV SCH (06:45)
--- NOTE | 2023-08-07 06:51 | History & Physical Bridge Note ---
Date of Service August 07, 2023 History & Physical Bridge Note I have examined the patient, reviewed the History & Physical and in the interval since the performance of the History & Physical I have noted the following changes of clinical significance: no changes noted
[2023-08-07] MEDS ORDERED: KETOROLAC 30 MG/ML VIAL ONE (07:18)
[2023-08-07] MEDS ORDERED: ONDANSETRON INJ 2 MG/ML 2 ML VIAL ONE (07:18)
[2023-08-07] MEDS ORDERED: ePHEDrine sulfate 50 MG/5 ML SYR ONE (07:18)
--- NOTE | 2023-08-07 08:54 | Operative Report ---
PG Post Operative Report Pre & Post Diagnosis Operation Date: 08/07/23 07:00 Pre-Op Diagnosis: Left Hip Advanced Degenerative Joint Disease Post-Op Diagnosis: Left Hip Advanced Degenerative Joint Disease I identified the patient and participated in the time-out.: Yes Procedure Operation Date: 08/07/23 07:00 Actual Procedures p Left Total Hip Arthroplasty, Uncemented(Left) - Kaz Hernandez MD Surgeon Kaz Hernandez MD Preparation Plant Repairer Contreras Canela PA-C Estimated Blood Loss 200 Findings Consistent with Post-Op Diagnosis Operative findings revealed advanced left hip DJD. Had extensive grade 4 [id number] disease of the femoral head and acetabulum. Moderate-sized joint effusion. Fairly few osteophytes. Specimens Left femoral head sent for pathology. Anesthesia Type Spinal MAC Complications none Disposition Accompanied Patient To Recovery: No Indications Patient is a 53-year-old gentleman said a 7-year history of increasing left hip pain discomfort is gradually gotten worse over time. Is been through extensive conservative treatment which became less successful. X-rays show advanced hip arthritis. He elected proceed with surgical treatment. Description of Procedure Operative implants consist of: 1 Biomet G7 size 54 mm acetabular shell. 2. 6.5 cancellous acetabular screw of 35 mm in length x 1. 3. Parsons hole eliminator. 4. Highly cross-linked polyethylene liner with a 54 mm outer diameter, 36 mm inner diam with a tomlin placed inferior and posterior. 5. DePuy Corail size 10 KLA femoral stem. 6. +8.5/36 mm ceramic articular ball. The patient was taken to the operating, identified, placed on the operating table in the supine position but all contact areas were appropriately padded. IV antibiotics tried by anesthesia team. Spinal anesthetic and been implemented holding area. Patient was then placed in the right lateral decubitus position. Will was placed. Stulberg hip positioner was used for positioning. Left hip and leg were then prepped and draped in usual sterile fashion. A posterolateral approach to the left hip was then performed to a curvilinear incision centered over the greater trochanter. Sharp dissection was carried through subcutaneous tissue down below the IT band gluteal fascia the IT band gluteal fascia incised longitudinally in line with skin incision. The underlying greater bursa was excised. The piriformis and external rotators were taken off the posterior aspect of the hip along with the posterior hip joint capsule as a single layer. Great care was taken throughout the procedure protect the sciatic nerve at all times. Hip was internally rotated and dislocated. Femoral neck osteotomy cut was made with a Final Cut about 15 mm above the lesser trochanter. Femoral head was removed and sent for for pathology. The femur was retracted anteriorly. Attention drawn the acetabulum. The acetabular labrum was excised. The pulmonary fat was excised. Sequential reaming the acetabular was then performed beginning with size 45 and progressing up to 53. I reamed a little bit with a 54 reamer and then placed a 54 mm Biomet G7 acetabular shell in about 40 degrees lateral opening and 20 degrees of anteversion. This fixed with a single 6.5 cancellous acetabular screw. I tried to get the posterior screw in but spent quite a bit of time and was unable to through threaded through the posterior cortex. We elected not to place a additional screw as the interference fit was excellent and the initial screw fit very tightly. A trial liner was placed. Attention drawn the femur. The proximal femur was entered with a [employer] cutter followed by canal finder. I then broached beginning with size 8 and progressing up to 10 to get excellent fitted to 10. Did not think I could a big get a bigger stem in. We trialed the hip and the +5 articular ball provide full stability but there was quite a bit of soft tissue laxity. Therefore elected to use a slightly longer head with an [address] a tomlin inferior and posterior to maximize his stability. Leg lengths did seem equal. Soft tissue tension was improved but still a bit lax but I elected to except this to avoid lengthening him. We elect to place these implants. All trial implants were removed. Parsons summer camp counselor was placed. Highly cross- linked polyethylene liner with a tomlin was placed with a tomlin inferior and posterior. A size 10 KLA femoral stem was impacted in position. A +8.5/36 mm ceramic articular ball was placed. Hip was located and once again found to be stable. Attention drawn toward closing. The wounds irrigated coconuts pulsatile lavage solution. I did inject locally with 60 cc of half percent Marcaine with epinephrine. Posterior capsule and external rotators were repaired through drill holes in the posterior trochanter with #2 Tycron suture. The IT band gluteal fascia then closed in 1 PDS suture running fashion through the subcutaneous tissue then closed in 2 layers with deep layer #1 Vicryl suture in the subcutaneous tissues with 2 Dexon suture in a buried interrupted fashion. Skin was closed skin connor. Leg was then cleaned and dried and sterile dressing was Xeroform, 4 fours, sterile ABD and pad and foam tape was applied. The patient was then transferred to the recovery room in stable condition. The patient tolerated the procedure well and there were no complications. Contreras Canela, my physician costumer assistant, was present for the entire procedure. His assistance was essential and required for appropriate patient positioning, prepping and draping, surgical exposure, performing the technical details of the operation, placement the implants, closure of the wound, and placement of the sterile bandage. I attest to the content of the Intraoperative Record and any orders documented therein. Any exceptions are noted below.
--- NOTE | 2023-08-07 09:23 | Anesthesiology Progress Note ---
Date of Service August 07, 2023 Anesthesia Post Procedure Vital Signs Vital Signs: Temp Pulse Resp BP BP Pulse Ox O2 Del Method 08/07/23 09:20 36.4 C L 63 15 125/73 96 Room Air 08/07/23 09:10 61 17 133/75 97 Room Air 08/07/23 09:00 53 L 16 117/64 100 Oxymask 08/07/23 08:50 62 14 116/61 99 Oxymask 08/07/23 08:40 60 14 119/67 99 Oxymask 08/07/23 08:37 36.2 C L 68 12 117/64 99 Oxymask 08/07/23 05:33 36.6 C 65 18 139/76 98 Room Air O2 Flow Rate 08/07/23 09:20 08/07/23 09:10 08/07/23 09:00 3 08/07/23 08:50 3 08/07/23 08:40 6 08/07/23 08:37 6 08/07/23 05:33 Pain Intensity Left Hip: Pain Intensity: 3 Transfer of Care Handoff Completed per policy Notes Mental Status: alert / awake / arousable and participated in evaluation Patient Amnestic to Procedure: Yes Nausea / Vomiting: adequately controlled Pain: adequately controlled Airway Patency, RR, SpO2: stable & adequate BP & HR: stable & adequate Hydration State: stable & adequate Neuraxial Anesthesia: was administered and sensory block is resolving Anesthetic Complications: no major complications apparent and Pt Satisfied with anesthetic care
[2023-08-07] MEDS ORDERED: bisacodyL 10 MG SUPP PR PRN (09:39)
[2023-08-07] MEDS ORDERED: ALUMINUM/MAGNESIUM SUSP 30 ML UDC PO PRN (09:39)
[2023-08-07] MEDS ORDERED: TAMSULOSIN HCL 0.4 MG CAP PO PRN (09:39)
[2023-08-07] MEDS ORDERED: ALBUTEROL HFA 8 GM INHALER INH PRN (09:39)
[2023-08-07] MEDS ORDERED: MAGNESIUM HYDROXIDE SUSP 30 ML UDC PO PRN (09:39)
[2023-08-07] MEDS ORDERED: NON-FORMULARY MEDICATION (Fluticasone-Umeclidin-Vilanter [Trelegy Ellipta] 100-62.5-25 mcg INH SCH (09:39)
--- NOTE | 2023-08-07 09:44 | XRay Report ---
XR hip 1V LT w pelvis HISTORY: 53 years-old Male IN PACU - Post Surgical left hip arthroplasty COMPARISON: 04/20/2023 TECHNIQUE: AP view the pelvis with crosstable lateral view of the left hip FINDINGS: Mild right hip osteoarthritis. Satisfactory alignment of the left hip arthroplasty. Lateral skin stap les with expected postoperative soft tissue swelling and deep tissue air. No acute fracture, dislocat ion or opaque foreign body identified. IMPRESSION: Left hip arthroplasty with expected postoperative changes. ACT 112: Negative or not required by law. The above report was generated using voice recognition software. It may contain grammatical, syntax o r spelling errors. Electronically signed by: Abhishek Mccormack M.D. 08/07/2023 9:43 AM
[2023-08-07] MEDS: SODIUM CHLORIDE 0.9% 1,000 ML IV SCH ×2 (09:55→19:36)
[2023-08-07] MEDS: MULTIVITAMIN TAB PO SCH (10:53)
[2023-08-07] MEDS: DOCUSATE SODIUM 100 MG CAP PO SCH ×2 (10:53→19:39)
[2023-08-07] MEDS: ASPIRIN 81 MG ECTAB PO SCH ×2 (10:53→19:38)
[2023-08-07] MEDS: KETOROLAC 30 MG/ML VIAL IV SCH ×2 (11:59→17:09)
[2023-08-07] MEDS: ceFAZolin 2000MG 2,000 MG/15 ML SYR IV SCH ×2 (14:39→21:44)
[2023-08-07] MEDS ORDERED: TRANEXAMIC ACID / 0.7% NACL 1,000 MG/100 ML BAG IV SCH (14:45)
[2023-08-07] MEDS: Scopolamine CHECK PATCH PLACEMENT SCH (15:00)
[2023-08-07] MEDS: ASCORBIC ACID 500 MG TAB PO SCH (17:09)
[2023-08-07] MEDS: GABAPENTIN 300 MG CAP PO SCH (19:39)
[2023-08-07] MEDS: PANTOprazole 40 MG TAB PO SCH (19:40)
[2023-08-07] MEDS: SENNA 8.6 MG TAB PO SCH (19:41)
[2023-08-07] MEDS ORDERED: MONTELUKAST SODIUM 10 MG TABLET PO SCH (21:00)
[2023-08-07] MEDS ORDERED: SENNA 8.6 MG TAB PO SCH (21:00)
[2023-08-07] MEDS ORDERED: LOSARTAN POTASSIUM 50 MG TAB PO SCH (21:00)
[2023-08-07] MEDS: ACETAMINOPHEN 500 MG TAB PO SCH (21:44)
[2023-08-08] MEDS ORDERED: traMADol HCL 50 MG TABLET PO PRN (00:40)
[2023-08-08] MEDS ORDERED: HYDROmorphone INJ 0.5 MG/0.5 ML SYR IV PRN (00:40)
[2023-08-08] MEDS ORDERED: ONDANSETRON INJ 2 MG/ML 2 ML VIAL IV PRN (00:40)
[2023-08-08] MEDS ORDERED: METOCLOPRAMIDE HCL INJ 5 MG/ML 2 ML VIAL IV PRN (00:40)
[2023-08-08] MEDS ORDERED: diphenhydrAMINE Capsule 25 MG CAP PO PRN (00:40)
[2023-08-08] MEDS: Scopolamine CHECK PATCH PLACEMENT SCH ×2 (00:50→07:44)
[2023-08-08] MEDS: KETOROLAC 30 MG/ML VIAL IV SCH ×3 (00:50→10:30)
[2023-08-08] MEDS: ACETAMINOPHEN 500 MG TAB PO SCH (05:16)
[2023-08-08 05:56] LABS: Basophils # (auto) 0.01 K/uL (0.00-0.20); Basophils % (auto) 0.1 %; Hematocrit (blood only) 33.7 % (42.0-52.0); Hemoglobin 11.1 g/dl (14.0-18.0); Immature Granulocytes # (auto) 0.03 K/uL (0.01-0.20); Immature Granulocytes % (auto) 0.3 %; Lymphocytes # (auto) 1.06 K/uL (1.20-3.40); Lymphocytes % (auto) 11.6 %; Mean Corpuscular Hemoglobin 29.3 pg (25.0-34.0); Mean Corpuscular Hgb Conc 32.9 g/dL (32.0-36.0); Mean Corpuscular Volume 88.9 fL (80.0-100.0); Mean Platelet Volume 9.4 fL (9.4-12.4); Monocytes # (auto) 0.77 K/uL (0.11-0.59); Monocytes % (auto) 8.4 %; Neutrophils # (auto) 7.29 K/uL (1.40-6.50); Neutrophils % (auto) 79.6 %; Platelet Count 165 K/uL (130-400); RDW Coefficient of Variation 12.6 % (11.5-14.5); RDW Standard Deviation 41.4 fL (36.4-46.3); Red Blood Count 3.79 M/uL (4.70-6.10); White Blood Count 9.16 K/ul (4.8-10.8)
[2023-08-08 06:14] LABS: BUN Creatinine Ratio 27.8 (10-20); Calcium 8.7 mg/dl (8.6-10.3); Creatinine Clr Calc Pharmacy 109.1 ml/min; Est GFR (African American) 113.4 ml/min; Est GFR (Non-African American) 97.9 ml/min; Potassium 3.9 mmol/L (3.5-5.1)
[2023-08-08] MEDS: MULTIVITAMIN TAB PO SCH (07:42)
[2023-08-08] MEDS: SENNA 8.6 MG TAB PO SCH (07:42)
[2023-08-08] MEDS: ASPIRIN 81 MG ECTAB PO SCH (07:43)
[2023-08-08] MEDS: DOCUSATE SODIUM 100 MG CAP PO SCH (07:43)
[2023-08-08] MEDS: GABAPENTIN 300 MG CAP PO SCH (07:43)
[2023-08-08] MEDS: ASCORBIC ACID 500 MG TAB PO SCH (07:43)
[2023-08-08] MEDS: PANTOprazole 40 MG TAB PO SCH (07:43)
[2023-08-08] MEDS ORDERED: dexAMETHasone 10 MG in SYRINGE 0 ML IV SCH (08:00)
[2023-08-08] MEDS ORDERED: UMECLIDINIUM/VILANTEROL 62.5/25MCG 7 PUFFS/INHALER INH SCH (09:00)
[2023-08-08] MEDS ORDERED: OMEGA-3 (PURIFIED FISH OIL) 1 GM CAP PO SCH (09:00)
[2023-08-08] MEDS ORDERED: FLUTICASONE FUROATE 100MCG 14 PUFFS/INHALER INH SCH (09:00)
--- NOTE | 2023-08-08 10:09 | Orthopedic Progress Note ---
Date of Service August 08, 2023 Assessment & Plan (1) Status post left hip replacement: Overall, he is doing quite well today with good pain control to the left hip. He will work with physical therapy later this morning to work on ambulation and range of motion exercises. He is on aspirin for DVT prophylaxis. He may be discharged home later this morning pending physical therapy evaluation. He will follow-up with Dr. Hernandez in 2 weeks for postoperative care. Lev Holley was seen and evaluated at bedside this morning resting comfortably in no apparent distress. He notes that his pain is well-controlled to the left hip. He has been up and out of bed with no significant issues. He has yet to work with physical therapy this morning. He denies any other concerns today. Review of Systems All systems reviewed & are unremarkable except as noted in HPI & below. Physical Exam . On physical examination of the left hip, dressings are clean, dry, intact. His leg is out in full extension. He has active plantarflexion dorsiflexion to the left ankle. +2 DP and PT pulses. Less than 2-second capillary refill. Normal sensation. Neurovascular intact. Results & Data Results & Data Laboratory Results . Diagnostic Findings . Postoperative x-rays of the left hip show prosthesis to be in anatomical alignment with no signs of fracture complication or loosening. PG Care Time/CCT Total # of Minutes Spent Total Time Spent with Patient: Total time spent is greater than 50% in coordination of care (as documented) at patient's floor/unit and/or counseling patient: Coding Level of Care Code 54164 Post Operative Follow-Up Diagnoses Status post left hip replacement Z96.642
--- NOTE | 2023-08-08 10:11 | Discharge Summary ---
Date of Service August 08, 2023 Admission HPI (Per Admitting) . Patient is a 53-year-old gentleman who presents for treatment of his left hip. He is better each year and half to 2-year history of gradually progressive increased left hip pain and discomfort. There is a strong family history of a hip and joint arthritis. Describes groin pain thigh pain. He has had some injections provide some temporary relief only. He is having more difficulty getting around. He works at [employer] and having difficulty standing for prolonged periods of time. Denies any numbness or back or radicular symptoms. He like to have his left hip fixed. Admission Exam (Per Admitting) . Physical examination was a pleasant healthy middle-age male. He ambulates with a little of a limp. He maybe about a half a centimeter short in the left side compared to the right. He has limited hip motion with pain with internal rotation. Negative straight leg raise. He is neurologically intact. Principal Diagnosis Same as "Discharge Diagnosis" noted below under Discharge Instructions. Discharge Exam . On physical examination of the left hip, dressings are clean, dry, intact. His leg is out in full extension. He has active plantarflexion dorsiflexion to the left ankle. +2 DP and PT pulses. Less than 2-second capillary refill. Normal sensation. Neurovascular intact. Discharge Data Procedures Performed Operation Date: 08/07/23 07:00 Actual Procedures p Left Total Hip Arthroplasty, Uncemented(Left) - Kaz Hernandez MD Hospital Course (1) Status post left hip replacement: On August 07, 2023 Kishan arrived at [facility] and underwent a left total hip arthroplasty with Dr. Hernandez with no complications. He had a spinal anesthetic. Postoperatively, he was started on aspirin for DVT prophylaxis and transferred to the general orthopedic floor in stable condition. His hospital course was uneventful. On postoperative day #1, his vital signs were stable and his pain was well-controlled. He participated well with physical therapy working on ambulation and range of motion exercises. He was then discharged home in stable condition. He will follow-up in [address] Hernandez for postoperative care. PG Care Time/CCT Total # of Minutes Spent Total Time Spent with Patient: Total time spent is greater than 50% in coordination of care (as documented) at patient's floor/unit and/or counseling patient: Discharge Plan Discharge Items Patient Disposition: Home - Home Health Services Reason For Visit: Left Hip Degenerative Joint Disease Discharge Diagnosis: Left Hip Replacement Activity: Per Instructions section Activity Comment: Follow/Obey hip precautions at all times. Weightbearing: Full weightbearing Weightbearing Comment: Weightbear as tolerated obeying hip precautions. Non-emergency contact: Surgeon Call non-emergency contact if: you have any medication questions Follow-up/Referrals: Unknown,Unknown [] - Diet: Regular Addtl Attending Provider Instructions: ACTIVITY RECOMMENDATIONS: Physical Therapy: * Aggressive physical therapy is not usually needed. You will learn to take care of yourself safely and walk. * Follow the "Hip Precautions Instructions." * In some cases, the long term care social worker at the hospital will arrange to have a therapist come to your house for the first couple of weeks to help you learn these skills. * You need to practice on your own or with the help of a family member as needed. * When you learn these skills, most of the therapy can be done on your own. Home Exercise: * You were shown a series of exercises in the hospital. Do these exercises three to four times each day including the exercises you were shown in physical therapy. Walking: * Get up and walk several times each day. For the first four weeks, try not to stand or walk for more than one hour at a time. If you do stand or walk for more than one hour, you will not hurt anything, but your leg will likely swell. * As you feel comfortable, you may change from the walker or crutches to a cane and then to independent walking. MEDICATIONS: New Medicine: * You will likely be taking one or more of these medicines: 1. Tramadol - Take, as directed, when you need it, every six hours to control your pain. 2. Aspirin - Thins your blood to lessen the chance of forming a blood clot. * The most common side effects of pain medicine and iron are nausea and co nstipation. If nausea or constipation is too much of a problem or if you have any questions about your new medicines or doses, call [facility] at [phone]. We will try to help you manage these issues. "VERY IMPORTANT TO READ AND REVIEW" Pain: * The immediate post-operative period after hip replacement surgery is often quite painful. * You are given a prescription for pain medicine. You should take it, as directed, when you need it, especially before physical therapy and before going to bed. Pain that interferes with sleep is very common and can last several months. * You will likely need pain medicine for the first two to four weeks. It will not stop all of the pain. The pain will lessen and as you feel better, you may change to milder pain medicine such as Tylenol. * The most common side effects of pain medicine are nausea and constipation, so don't take more than you need. SPECIAL CARE INSTRUCTIONS: TEDs/Elastic Stockings: * The white elastic stockings help limit swelling and prevent blood clots from forming in your legs. The more you wear them, the more they work. * Wear them for six weeks. Incision Site Care: * Remove dressing postoperative day 2 and then shower. Keep direct shower pressure off the incision site. * After showering, cover connor with dry gauze and change daily or more frequently if the dressing is getting saturated with drainage. * May completely stop using bandage if wound is dry and no drainage * Round Top are removed between 2 and 3 weeks post-op. If your follow-up appointment is made before 2 weeks, please have your appointment re- scheduled. It is too early to remove the connor. Prevention of Infection: * Take antibiotics one hour before any dental cleaning, dental work, urological procedure, gastrointestinal procedure or any invasive surgery in order to prevent your new joint from getting infected. * You may get the antibiotics from the doctor performing the procedure or you may call our office at before and we will call in a prescription to the pharmacy of your choice. Things to Watch For: * Drainage from the incision site that occurs more than one week after your surgery. * Severely increased leg pain or swelling. * Increased redness at the incision site. * Fever above 102 degrees Fahrenheit. * Unusual chest pain or shortness of breath. * Unusual pain or burning with urination. Call [facility] at with any of the above problems or if you have any questions about your medicines or recovery. FOLLOW UP VISIT: Make an appointment to see your doctor for approximately two weeks after surgery for a progress check and staple removal by calling the office at . Pending Studies at Discharge: No Stand-Alone Forms: My [facility], Smoking Cessation Medications and DC Order Prescriptions: Continued albuterol sulfate [ProAir HFA] 90 mcg/actuation HFA aerosol inhaler 1 puff INH Q6H PRN (Reason: shortness of breath or wheezing) Qty: 18 3RF montelukast 10 mg tablet 10 mg PO QPM Qty: 90 3RF losartan 50 mg tablet 50 mg PO HS Qty: 30 5RF Fasenra 30 mg/mL syringe 30 mg subcut .COMPLEX Qty: 1 0RF Rx Instructions: INJECT 30MG SQ EVERY 8 WEEKS APPROVED GOOD 09/05/22-09/04/23 PA# [id number] Trelegy Ellipta 100-62.5-25 mcg blister with device 1 inh inhalation QAM Qty: 60 11RF pantoprazole 40 mg tablet,delayed release (DR/EC) See Rx Instructions .ROUTE .COMPLEX Qty: 60 5RF Dose Instruction: TAKE ONE TABLET BY MOUTH TWICE DAILY Rx Instructions: TAKE ONE TABLET BY MOUTH TWICE DAILY sennosides [Senokot] 8.6 mg tablet 8.6 mg PO BID 14 Days Qty: 28 0RF Rx Instructions: Take two times a day to prevent/treat constipation aspirin [Jose Miguel Low Dose Aspirin] 81 mg tablet,delayed release (DR/EC) 81 mg PO BID 45 Days Qty: 90 0RF Rx Instructions: Take to prevent blood clots. tramadol 50 mg tablet 50 - 100 mg PO Q6 PRN (Reason: pain) Qty: 40 0RF Rx Instructions: Take as needed for pain acetaminophen [Tylenol Extra Strength] 500 mg tablet 1,000 mg PO TID 30 Days Qty: 180 0RF Rx Instructions: Take 3 times per day to lessen pain. ketorolac 10 mg tablet 10 mg PO Q6 5 Days Qty: 20 0RF Rx Instructions: Take 4 times per day with food for 5 days to lessen pain and swelling. ondansetron 4 mg tablet,disintegrating 4 mg PO Q8 PRN (Reason: nausea) Qty: 20 1RF Rx Instructions: Take as needed for nausea omega-3 fatty acids [Fish Oil Concentrate] 1,000 mg capsule 1,000 mg PO QAM multivitamin [Daily Multi-Vitamin] tablet 1 tab PO QAM gabapentin 300 mg Tablet 300 mg PO BID Discontinued ibuprofen 200 mg Tablet 400 mg PO Q6H PRN (Reason: Pain) Admission Data Admit Date/Time: 08/07/23 08:46 Attending Provider: Kaz Hernandez Admit Provider: Kaz Hernandez Primary Care Provider: Elly Hawkins
== END 2023-08-08 11:52 | disposition home health service (06) ==
LOC: ASU 05:03 → 3E 05:03
DX: Z79.899 Other long term (current) drug therapy; R00.1 Bradycardia, unspecified; J45.909 Unspecified asthma, uncomplicated; Z88.6 Allergy status to analgesic agent; Z11.52 Encounter for screening for COVID-19; M25.752 Osteophyte, left hip; Z79.82 Long term (current) use of aspirin; M16.12 Unilateral primary osteoarthritis, left hip; K21.9 Gastro-esophageal reflux disease without esophagitis; Z79.620 Long term (current) use of immunosuppressive biologic; I10 Essential (primary) hypertension; Z86.16 Personal history of COVID-19; Z79.51 Long term (current) use of inhaled steroids; Z01.818 Encounter for other preprocedural examination; Z01.810 Encounter for preprocedural cardiovascular examination; Z01.812 Encounter for preprocedural laboratory examination

== ENCOUNTER 2023-08-22 00:43 | Observation (INO) ==
[2023-08-22 01:30] LABS: Basophils # (auto) 0.01 K/uL (0.00-0.20); Basophils % (auto) 0.1 %; Hemoglobin 13.6 g/dl (14.0-18.0); Immature Granulocytes # (auto) 0.02 K/uL (0.01-0.20); Immature Granulocytes % (auto) 0.3 %; Lymphocytes # (auto) 1.32 K/uL (1.20-3.40); Lymphocytes % (auto) 17.8 %; Mean Corpuscular Hemoglobin 29.6 pg (25.0-34.0); Mean Corpuscular Volume 87.1 fL (80.0-100.0); Mean Platelet Volume 9.1 fL (9.4-12.4); Monocytes # (auto) 0.58 K/uL (0.11-0.59); Monocytes % (auto) 7.8 %; Neutrophils # (auto) 5.49 K/uL (1.40-6.50); Platelet Count 236 K/uL (130-400); RDW Standard Deviation 41.1 fL (36.4-46.3); Red Blood Count 4.59 M/uL (4.70-6.10); White Blood Count 7.42 K/ul (4.8-10.8)
[2023-08-22 01:44] LABS: Albumin Globulin Ratio 1.8 (0.9-2); Albumin Level 4.4 gm/dl (3.4-5.0); BUN Creatinine Ratio 18.9 (10-20); Bilirubin,Total 0.5 mg/dl (0.2-1.0); Calcium 9.4 mg/dl (8.6-10.3); Creatinine Clr Calc Pharmacy 90.2 ml/min; Est GFR (Non-African American) 75.9 ml/min; Globulin 2.4 gm/dl (2.5-4.0); Potassium 4.3 mmol/L (3.5-5.1); Total Protein 6.8 gm/dl (6.0-8.3)
[2023-08-22 01:50] LABS: Troponin I High Sensitivity 2.6 pg/ml (0-20)
[2023-08-22 02:08] LABS: Partial Thromboplastin Time 28 Seconds (21-31); Prothrombin Time 10.9 Seconds (9.0-12.0)
[2023-08-22 02:23] LABS: D Dimer 12550 ug/L FEU (0-500)
--- NOTE | 2023-08-22 02:27 | Emergency Department Note ---
Impression & Plan Acute pulmonary embolism without acute cor pulmonale, Syncope and collapse, Closed head injury, Low back pain, Cervical strain, Pain of left calf, Status post left hip replacement ED Provider Note CHIEF COMPLAINT: Fall, dizziness, syncope HISTORY OF PRESENTING ILLNESS: This 53-year-old male patient presents to the emergency department with his for evaluation after a syncopal episode. The patient states that he got up to go to the bathroom tonight and felt dizzy. The next thing he remembers he was laying on the floor. He does not remember falling. He had a left hip replacement [address] Hernandez. The patient reports a pain in his left ribs, neck, lower back and left hip as well as tenderness to the back of his head. He rates his discomfort as 5/10. He feels that he has been healing well from the hip replacement and was able to walk well with the walker. He does not think that it was a mechanical fall, but rather a true syncopal episode. Denies any chest pain or SOB. Denies abdominal pain or vomiting, but had nausea right after the fall. He still feels lightheaded as well. He had been having pain in the left calf for the past couple days. He is not on any blood thinners other than aspirin. Denies hematochezia, melena, hematuria, hemoptysis, or hematemesis. No history of gastric ulcer or GI bleed. REVIEW OF SYSTEMS: See HPI for pertinent positives and pertinent negatives. ALLERGIES: Diclofenac MEDICATIONS: See below PAST MEDICAL HISTORY: See below PHYSICAL EXAM: VITALS: Vitals are noted on the nurse's note and reviewed by myself. GENERAL: No acute distress, non-diaphoretic. SKIN: The patient's surgical incision to the left hip appears to be healing well without evidence for infection. No lacerations or abrasions noted on exam. Capillary reflex less than 2 seconds. HEAD: Normocephalic. The patient is tender to palpation over the occipital aspect of the scalp, but no step-offs felt. EARS: Bilateral external auditory canals clear without tragus tenderness. Bilateral tympanic membranes pearly russo without erythema or effusion. No mastoid tenderness bilaterally. No hemotympanum. No tomlin sign. EYES: Pupils equal round and reactive to light and accommodation. Conjunctivae without injection, sclerae without icterus. Extraocular movements intact. NOSE: Patent without discharge. No sinus tenderness. No septal hematoma or bleeding. FACE: No facial bone tenderness. Full range of motion of the jaw without tenderness. MOUTH: Mucous membranes moist. Pharynx without erythema or exudate. Uvula midline. Airway patent. Tongue does not deviate. NECK: Supple without nuchal rigidity. Cervical spine is nontender to palpation, but he does have mild bilateral paraspinal muscle tenderness. Full range of motion of the neck. HEART: Regular rate and rhythm without murmurs gallops or rubs. LUNGS: Clear to auscultation bilaterally without wheezes, rales or rhonchi. No retractions or accessory muscle use. CHEST: The patient is tender to palpation over the left-sided ribs mainly in the axillary line. No fracture crepitus or flail chest noted. ABDOMEN: Positive bowel sounds x 4. Normal tympanic percussion. Soft, mildly tender to palpation in the left upper quadrant, without masses or organomegaly. No guarding or rebound tenderness. MUSCULOSKELETAL: No tenderness of the thoracic spine or paraspinal muscles. The patient is tender to palpation over the lumbar spine and L>R paraspinal muscles. No tenderness with pelvic rocking. The patient is mildly tender to palpation over the lateral aspect of the left hip near the incision site. He is also tender to palpation over the left calf with mild edema noted. No tenderness to palpation of the bony aspects of the remainder of the extremities. Peripheral pulses 2+. NEURO: Patient was alert and oriented to person place and time. Normal mental status exam. Normal sensation to light and sharp touch. No focal neurological deficits. DIFFERENTIAL DIAGNOSIS: Differential diagnosis includes PE, DVT, cardiac arrhythmia, [place], vasovagal syndrome, aortic stenosis, pulmonary stenosis, hypertrophic cardiomyopathy, mitral valve prolapse, prolonged QT syndrome, sick sinus syndrome, drug toxicity, tension pneumothorax, cardiopulmonary syncope, pulmonary vascular disease, basilar artery insufficiency, subclavian steal syndrome, migraine, carotid sinus syndrome, orthostatic hypotension, dehydration, hyperventilation, psychiatric causes, or others. ED COURSE AND MEDICAL DECISION MAKING: MONITOR: Continuous plant sprayer: Order was placed for continuous plant sprayer. Patient was placed on the plant sprayer and continuous pulse ox. Patient was noted to be in normal sinus rhythm at an initial rate of 74 bpm per my interpretation. EKG: EKG was interpreted by myself as normal sinus rhythm at [address] bpm with no acute ST or T wave changes. MEDICATIONS GIVEN: 1 L normal saline solution bolus. Tylenol 1000 mg IV. Heparin weight-based protocol with bolus of 5000 units. INTERPRETATION OF LABS: I interpreted the labs with full lab results as below in the lab section of this note. White blood cell count normal at 7.42. Hemoglobin slightly low at 13.6, but improved from 11.1 on 08/08/2023. Platelet count normal at 236. Coags were normal. D-dimer was elevated at 12,550. Alk phos elevated at 114 due to his recent hip replacement, but CMP otherwise normal. High-sensitivity troponin x 2 were normal. Magnesium normal. Urinalysis was unremarkable. INTERPRETATION OF IMAGING: Imaging studies were interpreted by myself and read by radiology as per the imaging section of this note. CT scan of the head without contrast showed no acute intracranial abnormalities. CT scan of the cervical spine without contrast showed no acute fractures or subluxations, but did show cervical spondylosis with varying degrees of central canal and foraminal stenosis. CT scan of the lumbar spine without contrast showed bilateral moderate severe neural foraminal stenosis at L1-L5 and S1 due to degenerative disc bulge and bony hypertrophy. CT scan of the abdomen and pelvis with IV contrast showed postoperative changes of the left hip arthroplasty with a small amount of fluid adjacent to the left hip arthroplasty with mild rim enhancement which may be secondary to the immediate postoperative state. No acute osseous pathology. Branching nodular opacities involving the left lower lobe likely infectious or inflammatory etiology. CTA of the chest with IV contrast showed subsegmental pulmonary emboli involving the right lower, right upper, and left lower lobe pulmonary arteries without right heart strain. Venous Doppler of the left lower extremity was negative for DVT. CONSULTATIONS: On-call hospitalist. MDM SUMMARY: The patient was seen during a time of extreme volume and extreme acuity. Nursing triage protocols were initiated with IV lock, labs, and/or imaging studies conducted by protocol in the triage area. The patient was examined by myself once they were taken back to an exam room. The patient had a syncopal episode this evening in the setting of a left hip replacement 2 weeks ago and left calf pain over the past couple of days. On my examination the patient's D- dimer had already been resulted at 12,550. There is high suspicion for PE at this time. The patient also has multiple areas of tenderness to palpation secondary to the fall from his syncopal episode. The patient was given Tylenol 1000 mg IV for pain as well as 1 L normal saline solution bolus. CT scans of the head, cervical spine, lumbar spine, chest, abdomen, and pelvis were negative for acute traumatic abnormalities. The left hip arthroplasty appears to be without acute traumatic injury in the postoperative state. CTA of the chest confirmed the diagnosis of subsegmental pulmonary emboli involving the right lower, right upper, and left lower lobe pulmonary arteries without right heart strain. I had a meaningful discussion about this patient with Dr. Valladares who agrees with my assessment and the treatment plan. The patient was started on a weight-based heparin protocol with a bolus of 5000 units given. Venous Doppler of the left lower extremity was negative for DVT. The patient complains of some mild continued dizziness, but otherwise denies any symptoms. He denies any chest pain or shortness of breath. The patient's vital signs are normal even given the PE. I spoke with the on-call hospitalist who agreed to admit the patient for further evaluation and treatment. Please refer to their dictation for further details. The patient's care was transferred in stable condition. DIAGNOSIS: PE Syncope with fall Closed head injury Traumatic low back pain Cervical strain Recent left hip replacement Left calf tenderness Past Med/Surg History Medical History Asthma Hypertension Arthritis of left hip Allergic rhinitis History of COVID-19 05/2022- fever, shortness of breath, cough > resolved Plantar fasciitis Occasional flares GERD (gastroesophageal reflux disease) Controlled Surgical History History of colonoscopy History of wisdom tooth extraction History of esophagogastroduodenoscopy (EGD) S/P tooth extraction S/P appendectomy Family History Family/Other Diabetes Hypertension Father Skin cancer Prostate cancer Diabetes Coronary heart disease Other Encounter for pre-operative examination No family history of adverse response to anesthesia Denies family history of Ovarian cancer Myocardial infarction Breast cancer Colorectal cancer Social History Smoking Status: Never smoker Second Hand Exposure: Yes (as kid); Do You Dip or Chew Tobacco: No; Hx Alcohol Use: No Hx Substance Use: No Preferred Language: Zambian Communication Ability: Effective Visual Impairment: No Limitations Hearing Ability: Normal Personal Vehicle Advisor Required: No Beliefs That Will Affect Care: None marital status: Single Current Living Situation: Spouse current occupational status: employed 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 Other Information That Helps Us Care for You: No Feels Safe at Home: Yes Safety Concerns: Feels Safe At This Time Childhood Exposure to Second-Hand Smoke: Yes Diet: regular caffeine: Yes Dental Care, Regularly: No Physical Activity Frequency: Does not Exercise Seatbelt Use: always Sunscreen Use: Yes Assistive Devices: Glasses and Walker Allergies Allergies Allergy/AdvReac Type Severity Reaction Status Date / Time diclofenac AdvReac Intermediate Gastrointestinal Verified 08/07/23 05:37 Upset Home Meds Home Medications Medication Instructions Recorded Confirmed albuterol sulfate 90 mcg/actuation 2 puff inhalation Q4H PRN 08/22/23 08/22/23 aerosol inhaler Shortness Of Breath Or Wheezing aspirin 81 mg tablet,delayed 81 mg PO DAILY 08/22/23 08/22/23 release benralizumab 30 mg/mL subcutaneous 30 mg subcut UD 08/22/23 08/22/23 auto-injector fluticasone fur. 100 mcg-umeclid 1 inh inhalation DAILY 08/22/23 08/22/23 62.5 mcg-vilant 25 mcg inhalat.powder (Trelegy Ellipta) gabapentin 300 mg capsule 300 mg PO BID pain 08/22/23 08/22/23 losartan 50 mg tablet 50 mg PO DAILY 08/22/23 08/22/23 montelukast 10 mg tablet 10 mg PO DAILY 08/22/23 08/22/23 omega-3 fatty acids 1,000 mg PO DAILY 08/22/23 08/22/23 pantoprazole 40 mg tablet,delayed 40 mg PO DAILY 08/22/23 08/22/23 release Results & Data (ED) Vital Signs Vital Signs - 24 hr 08/22/23 00:54 08/22/23 02:00 08/22/23 02:05 Temperature 36.9 C Temperature Source Temporal Artery Scan Pulse Rate 72 64 Pulse Rate [Apical] 63 Pulse Rate from SpO2 Sensor 64 Pulse Rhythm Regular Pulse Rhythm [Apical] Regular Pulse Strength Normal Pulse Strength [Apical] Normal Respiratory Rate 16 16 15 Respiratory Effort / Characteristics Non-Labored Spontaneous Non-Labored Respiratory Depth Normal Normal Respiratory Pattern Regular Regular Blood Pressure 107/69 Blood Pressure [Right Arm] 127/67 Blood Pressure Mean 81 Blood Pressure Mean [Right Arm] 87 Blood Pressure Position Sitting Blood Pressure Position [Right Arm] Sitting Pulse Oximetry 96 97 96 Oxygen Delivery Method Room Air Room Air Sepsis Recent Fever Within 48 Hours No Sepsis New/Unexplained Change in Mental Status No Sepsis Action Taken by Nursing No Action Required 08/22/23 02:06 08/22/23 02:30 08/22/23 02:30 Temperature Temperature Source Pulse Rate 64 Pulse Rate [Apical] Pulse Rate from SpO2 Sensor Pulse Rhythm Pulse Rhythm [Apical] Pulse Strength Pulse Strength [Apical] Respiratory Rate Respiratory Effort / Characteristics Respiratory Depth Respiratory Pattern Blood Pressure 122/52 L 122/52 L Blood Pressure [Right Arm] Blood Pressure Mean 68 68 Blood Pressure Mean [Right Arm] Blood Pressure Position Blood Pressure Position [Right Arm] Pulse Oximetry Oxygen Delivery Method Sepsis Recent Fever Within 48 Hours Sepsis New/Unexplained Change in Mental Status Sepsis Action Taken by Nursing 08/22/23 02:30 08/22/23 02:46 08/22/23 03:00 Temperature Temperature Source Pulse Rate 59 L 64 Pulse Rate [Apical] Pulse Rate from SpO2 Sensor 59 L Pulse Rhythm Regular Pulse Rhythm [Apical] Pulse Strength Pulse Strength [Apical] Respiratory Rate 15 16 Respiratory Effort / Characteristics Respiratory Depth Respiratory Pattern Blood Pressure 133/69 Blood Pressure [Right Arm] Blood Pressure Mean 90 Blood Pressure Mean [Right Arm] Blood Pressure Position Blood Pressure Position [Right Arm] Pulse Oximetry 96 96 Oxygen Delivery Method Room Air Sepsis Recent Fever Within 48 Hours Sepsis New/Unexplained Change in Mental Status Sepsis Action Taken by Nursing 08/22/23 03:00 08/22/23 03:24 08/22/23 03:24 Temperature Temperature Source Pulse Rate 58 L Pulse Rate [Apical] Pulse Rate from SpO2 Sensor 58 L 74 Pulse Rhythm Pulse Rhythm [Apical] Pulse Strength Pulse Strength [Apical] Respiratory Rate 13 Respiratory Effort / Characteristics Respiratory Depth Respiratory Pattern Blood Pressure 127/56 L Blood Pressure [Right Arm] Blood Pressure Mean 98 Blood Pressure Mean [Right Arm] Blood Pressure Position Blood Pressure Position [Right Arm] Pulse Oximetry 99 96 Oxygen Delivery Method Sepsis Recent Fever Within 48 Hours Sepsis New/Unexplained Change in Mental Status Sepsis Action Taken by Nursing 08/22/23 03:30 08/22/23 03:30 08/22/23 04:00 Temperature Temperature Source Pulse Rate 67 70 Pulse Rate [Apical] Pulse Rate from SpO2 Sensor 66 68 Pulse Rhythm Pulse Rhythm [Apical] Pulse Strength Pulse Strength [Apical] Respiratory Rate 17 23 Respiratory Effort / Characteristics Respiratory Depth Respiratory Pattern Blood Pressure 122/67 Blood Pressure [Right Arm] Blood Pressure Mean 87 Blood Pressure Mean [Right Arm] Blood Pressure Position Blood Pressure Position [Right Arm] Pulse Oximetry 97 97 Oxygen Delivery Method Sepsis Recent Fever Within 48 Hours Sepsis New/Unexplained Change in Mental Status Sepsis Action Taken by Nursing 08/22/23 04:00 08/22/23 04:30 08/22/23 04:30 Temperature Temperature Source Pulse Rate Pulse Rate [Apical] Pulse Rate from SpO2 Sensor Pulse Rhythm Pulse Rhythm [Apical] Pulse Strength Pulse Strength [Apical] Respiratory Rate Respiratory Effort / Characteristics Respiratory Depth Respiratory Pattern Blood Pressure 118/68 126/73 126/73 Blood Pressure [Right Arm] Blood Pressure Mean 75 86 86 Blood Pressure Mean [Right Arm] Blood Pressure Position Blood Pressure Position [Right Arm] Pulse Oximetry Oxygen Delivery Method Sepsis Recent Fever Within 48 Hours Sepsis New/Unexplained Change in Mental Status Sepsis Action Taken by Nursing 08/22/23 04:30 08/22/23 05:00 Temperature Temperature Source Pulse Rate 69 84 Pulse Rate [Apical] Pulse Rate from SpO2 Sensor 69 Pulse Rhythm Pulse Rhythm [Apical] Pulse Strength Pulse Strength [Apical] Respiratory Rate 16 19 Respiratory Effort / Characteristics Respiratory Depth Respiratory Pattern Blood Pressure Blood Pressure [Right Arm] Blood Pressure Mean Blood Pressure Mean [Right Arm] Blood Pressure Position Blood Pressure Position [Right Arm] Pulse Oximetry 99 Oxygen Delivery Method Sepsis Recent Fever Within 48 Hours Sepsis New/Unexplained Change in Mental Status Sepsis Action Taken by Nursing Laboratory Data 08/22/23 01:10 08/22/23 01:10 Lab Results 08/22/23 Range/Units 01:10 WBC 7.42 (4.8-10.8) K/ul RBC 4.59 L (4.70-6.10) M/uL Hgb 13.6 L (14.0-18.0) g/dl Hct 40.0 L (42.0-52.0) % MCV 87.1 (80.0-100.0) fL MCH 29.6 (25.0-34.0) pg MCHC 34.0 (32.0-36.0) g/dL RDW Std Deviation 41.1 (36.4-46.3) fL RDW Coeff of [place] 13.0 (11.5-14.5) % Plt Count 236 (130-400) K/uL MPV 9.1 L (9.4-12.4) fL Immature Gran % (Auto) 0.3 % Neut % (Auto) 74.0 % Lymph % (Auto) 17.8 % [place] % (Auto) 7.8 % Eos % (Auto) 0.0 % Baso % (Auto) 0.1 % Neut # (Auto) 5.49 (1.40-6.50) K/uL Lymph # (Auto) 1.32 (1.20-3.40) K/uL [place] # (Auto) 0.58 (0.11-0.59) K/uL Eos # (Auto) 0.00 (0.00-0.50) K/uL Baso # (Auto) 0.01 (0.00-0.20) K/uL Immature Gran # (Auto) 0.02 (0.01-0.20) K/uL PT 10.9 (9.0-12.0) Seconds INR 1.0 (0.9-1.1) APTT 28 (21-31) Seconds PTT Ratio 1.0 D-Dimer 66547 H* (0-500) ug/L FEU Sodium 138 (136-145) mmol/L Potassium 4.3 (3.5-5.1) mmol/L Chloride 104 (98-107) mmol/L Carbon Dioxide 29 (21-32) mmol/L Anion Gap 5 (3-11) BUN 21 (6-23) mg/dl Creatinine 1.11 (0.6-1.4) mg/dl Est Cr Clr Drug Dosing 90.2 ml/min Est GFR ( Amer) 88.0 ml/min Est GFR (Non-Af Amer) 75.9 ml/min BUN/Creatinine Ratio 18.9 (10-20) Glucose 96 (70-99(Fasting)) mg/dl Calcium 9.4 (8.6-10.3) mg/dl Magnesium 2.0 (1.7-2.4) mg/dl Total Bilirubin 0.5 (0.2-1.0) mg/dl AST 21 (13-39) U/L ALT 24 (7-52) U/L Alkaline Phosphatase 114 H (34-104) U/L Troponin I High Sens 2.6 (0-20) pg/ml Total Protein 6.8 (6.0-8.3) gm/dl Albumin 4.4 (3.4-5.0) gm/dl Globulin 2.4 L (2.5-4.0) gm/dl Albumin/Globulin Ratio 1.8 (0.9-2) Administered Medications Acetaminophen (Acetaminophen 325 Mg Tab) 650 mg PO Q4H PRN PRN Reason: Pain or Fever Stop: 09/21/23 07:38 Last Admin: 08/22/23 14:39 Dose: 650 mg Documented By: Admin: 08/22/23 08:43 Dose: 650 mg Documented By: TEJAL Albuterol (Albuterol Hfa 8 Gm Inhaler) 2 puffs INH Q4R PRN PRN Reason: Shortness Of Breath Or Wheezing Stop: 09/21/23 07:38 Last Admin: 08/22/23 11:15 Dose: 2 puffs Documented By: TOBY Aspirin (Aspirin 81 Mg Ectab) 81 mg PO DAILY [facility] Stop: 09/21/23 08:59 Last Admin: 08/22/23 08:42 Dose: 81 mg Documented By: TEJAL Fluticasone Furoate (Fluticasone Furoate 100mcg 14 Puffs/Inhaler) 1 puffs INH DAILY [facility] Stop: 09/21/23 08:59 Last Admin: 08/22/23 08:45 Dose: 1 puffs Documented By: TEJAL Gabapentin (Gabapentin 300 Mg Cap) 300 mg PO BID [facility] Stop: 09/21/23 08:59 Last Admin: 08/22/23 08:42 Dose: 300 mg Documented By: TEJAL Heparin Sodium/Dextrose (Heparin Sodium/Dextrose) 25,000 units in 500 mls @ 30 mls/hr IV .[id number] [facility]; Protocol Stop: 09/21/23 04:29 Last Titration: 08/22/23 11:36 Dose: 1,500 units/hr, 30 mls/hr Documented By: TOBY Co-signed By: GAB Admin: 08/22/23 05:04 Dose: 1,500 units/hr, 30 mls/hr Documented By: ELVIN Co-signed By: SHE Sodium Chloride (Nss) 1,000 mls @ 80 mls/hr IV .[id number] [facility] Stop: 08/22/23 20:08 Last Admin: 08/22/23 08:39 Dose: 80 mls/hr Documented By: TEJAL Losartan Potassium (Losartan Potassium 50 Mg Tab) 50 mg PO DAILY [facility] Stop: 09/21/23 08:59 Last Admin: 08/22/23 08:42 Dose: 50 mg Documented By: TEJAL Montelukast Sodium (Montelukast Sodium 10 Mg Tablet) 10 mg PO DAILY [facility] Stop: 09/21/23 08:59 Last Admin: 08/22/23 08:43 Dose: 10 mg Documented By: TEJAL Pantoprazole Sodium (Pantoprazole 40 Mg Tab) 40 mg PO DAILY [facility]ISSA Stop: 09/21/23 08:59 Last Admin: 08/22/23 08:43 Dose: 40 mg Documented By: TEJAL Umeclidinium/Vilanterol (Umeclidinium/Vilanterol 62.5/25mcg 7 Puffs/Inhaler) 1 puffs INH DAILY [facility] Stop: 09/21/23 08:59 Last Admin: 08/22/23 08:44 Dose: 1 puffs Documented By: TEJAL Discontinued Medications Heparin Sodium (Porcine) (Heparin Sod (Porcine) 1000 Unit/Ml) 7,000 units IV NOW ONE Stop: 08/22/23 04:46 Last Admin: 08/22/23 05:03 Dose: 5,000 units Documented By: ELVIN Co-signed By: SHE Heparin Sodium/Dextrose (Heparin Iv Adult Wt-Based Standard W/ Initial Bolus Protocol) 1 each IV NOW STA; Protocol Stop: 08/22/23 04:13 Last Admin: 08/22/23 05:05 Dose: 1 each Documented By: ELVIN Sodium Chloride (Nss) 1,000 mls @ 999 mls/hr IV .Q1H1M ONE Stop: 08/22/23 03:45 Last Infusion: 08/22/23 03:58 Dose: Infused Documented By: Admin: 08/22/23 02:56 Dose: 999 mls/hr Documented By: ELVIN Acetaminophen (Ofirmev) 1,000 mg in 100 mls @ 400 mls/hr IV NOW STA Stop: 08/22/23 02:59 Last Infusion: 08/22/23 03:26 Dose: Infused Documented By: Admin: 08/22/23 02:57 Dose: 400 mls/hr Documented By: ELVIN Ioversol (Optiray 320 125ml) 125 ml IV ONCE ONE Stop: 08/22/23 03:31 Last Admin: 08/22/23 03:30 Dose: 118 ml Documented By: NEW Imaging Data Radiologist's Impression: Abdomen/Pelvis CT 08/22/23 02:45 Exam(s): CT ABDOMEN + PELVIS With Contrast IV Amt: 118 ml optiray 320 EXAM: CT Abdomen and Pelvis With Intravenous Contrast CLINICAL HISTORY: Reason for exam: Trauma, left sided abdominal and hip pain. TECHNIQUE: Axial computed tomography images of the abdomen and pelvis with intravenous contrast. CTDI is 27.8 mGy and DLP is 1412.11 mGy-cm. Automated exposure control was utilized for the study. A dose lowering technique was utilized adhering to the principles of ALARA. CONTRAST: Patient received 118 ml optiray 320 of IV contrast COMPARISON: No relevant prior studies available. FINDINGS: Lung bases: branching nodular opacities at the left lower lobe. ABDOMEN: Liver: Unremarkable. No mass. Gallbladder and bile ducts: Unremarkable. No calcified stones. No ductal dilation. Pancreas: Unremarkable. No mass. No ductal dilation. Spleen: Unremarkable. No splenomegaly. Adrenals: Unremarkable. No mass. Kidneys and ureters: Unremarkable. No solid mass. No hydronephrosis. Stomach and bowel: Unremarkable. No obstruction. No mucosal thickening. PELVIS: Appendix: No findings to suggest acute appendicitis. Bladder: Unremarkable. No mass. Reproductive: Unremarkable as visualized. ABDOMEN and PELVIS: Intraperitoneal space: Unremarkable. No free air. No significant fluid collection. Bones/joints: Postoperative changes left hip arthroplasty moderate sized fluid collection about the left hip with subtle rim enhancement . Surgical clips overlying the left hip. No acute fracture. No dislocation. Soft tissues: Unremarkable. Vasculature: Unremarkable. No abdominal aortic aneurysm. Lymph nodes: Unremarkable. No enlarged lymph nodes. IMPRESSION: 1. Postoperative changes left hip arthroplasty with small amount of fluid adjacent to the left hip arthroplasty. This demonstrates mild rim enhancement. This may be secondary to the immediate postoperative state. No acute osseous pathology. 2. Branching nodular opacities involving the left lower lobe likely infectious or inflammatory etiology. Electronically signed by: Clarence Mackay MD 08/22/23 03:[address] 08/22/23 02:45 Exam(s): CT C SPINE EXAM: CT Cervical Spine Without Intravenous Contrast CLINICAL HISTORY: Reason for exam: Trauma. TECHNIQUE: Axial computed tomography images of the cervical spine without intravenous contrast. CTDI is 27.02 mGy and DLP is 933.25 mGy-cm. Automated exposure control was utilized for the study. A dose lowering technique was utilized adhering to the principles of ALARA. COMPARISON: No relevant prior studies available. FINDINGS: No fracture or subluxations are noted. The vertebral body heights and alignment are preserved. No prevertebral soft tissue swelling. Note is made of multilevel cervical spondylosis with varying degrees of central canal and foramina stenoses. IMPRESSION: 1. No cervical fractures. 2. Cervical spondylosis with varying degrees of central canal and foramina stenoses. Electronically signed by: Clarence Mackay MD 08/22/23 03:48 AM Chest CTA 08/22/23 02:45 CR Exam(s): CTA CHEST IV Amt: 118 ml optiray 320 EXAM: CT Angiography Chest With Intravenous Contrast CLINICAL HISTORY: Reason for exam: PE. TECHNIQUE: Axial computed tomographic angiography images of the chest with intravenous contrast. CTDI is 27.8 mGy and DLP is 1412.11 mGy-cm. Automated exposure control was utilized for the study. A dose lowering technique was utilized adhering to the principles of ALARA. MIP reconstructed images were created and reviewed. COMPARISON: No relevant prior studies available. FINDINGS: Pulmonary arteries: Right lower lobe subsegmental pulmonary emboli. Right upper lobe subsegmental pulmonary emboli. Left lower lobe subsegmental pulmonary emboli. No large central pulmonary embolus. No evidence of right heart strain. Aorta: No acute findings. No thoracic aortic aneurysm. Lungs: Unremarkable. No mass. No consolidation. Pleural space: Unremarkable. No significant effusion. No pneumothorax. Heart: Unremarkable. No cardiomegaly. No significant pericardial effusion. No evidence of RV dysfunction. Bones/joints: No acute fracture. No dislocation. Soft tissues: Unremarkable. Lymph nodes: Unremarkable. No enlarged lymph nodes. IMPRESSION: Subsegmental pulmonary emboli involving the right lower, right upper, and left lower lobe pulmonary arteries Communications: Call Doctor Pulmonary Embolism Electronically signed by: Clarence Mackay MD 08/22/23 04:[address] 08/22/23 02:45 Exam(s): CT HEAD Without Contrast EXAM: CT Head Without Intravenous Contrast CLINICAL HISTORY: Reason for exam: Trauma, syncope. TECHNIQUE: Axial computed tomography images of the head/brain without intravenous contrast. CTDI is 24.2 mGy and DLP is 511.4 mGy-cm. Automated exposure control was utilized for the study. A dose lowering technique was utilized adhering to the principles of ALARA. COMPARISON: No relevant prior studies available. FINDINGS: Brain: Unremarkable. No hemorrhage. No significant white matter disease. No edema. Ventricles: Unremarkable. No ventriculomegaly. Bones/joints: Unremarkable. No acute fracture. Soft tissues: Unremarkable. Sinuses: Unremarkable as visualized. No acute sinusitis. Mastoid air cells: Unremarkable as visualized. No mastoid effusion. IMPRESSION: Normal head/brain CT. Electronically signed by: Clarence Mackay MD 08/22/23 04:[address] 08/22/23 02:45 Exam(s): CT L SPINE With Contrast IV Amt: 118 ml optiray 320 EXAM: CT Lumbar Spine With Intravenous Contrast CLINICAL HISTORY: Reason for exam: Trauma. TECHNIQUE: Axial computed tomography images of the lumbar spine with intravenous contrast. CTDI is 27.02 mGy and DLP is 933.25 mGy-cm. Automated exposure control was utilized for the study. A dose lowering technique was utilized adhering to the principles of ALARA. CONTRAST: Patient received 118 ml optiray 320 of IV contrast COMPARISON: No relevant prior studies available. FINDINGS: Vertebrae: Unremarkable. No acute fracture. Discs/spinal canal/neural foramina: Bilateral moderate severe neural foraminal stenosis at And L1 L2-L5 S1 due to a degenerative disc bulge and bony hypertrophy. Soft tissues: Unremarkable. IMPRESSION: Bilateral moderate severe neural foraminal stenosis at And L1 L2-L5 S1 due to a degenerative disc bulge and bony hypertrophy. Electronically signed by: Clarence Mackay MD 08/22/23 04:05 AM Discharge Plan Visit Data Chief Complaint: Fall Stated Complaint: FALL-DIZZY,PASSED OUT,POSSIBLY HIT HEAD ED Provider: Alycia Valladares ED Midlevel Provider: Treva Castillo Discharge Problem: Acute pulmonary embolism without acute cor pulmonale, Syncope and collapse, Closed head injury, Low back pain, Cervical strain, Pain of left calf, Status post left hip replacement Patient Disposition: Admitted As Inpatient Condition: Good Discharge Instructions Interventions: ED Discharge Assessment Last Done: 08/22/23 07:39 Discharge Problem: Acute pulmonary embolism without acute cor pulmonale Qualifiers: Pulmonary embolism type: unspecified Qualified Code(s): I26.99 - Other pulmonary embolism without acute cor pulmonale Closed head injury Qualifiers: Encounter type: initial encounter Qualified Code(s): S09.90XA - Unspecified injury of head, initial encounter Low back pain Qualifiers: Chronicity: acute Back pain laterality: bilateral Sciatica presence: without sciatica Qualified Code(s): M54.50 - Low back pain, unspecified Cervical strain Qualifiers: Encounter type: initial encounter Qualified Code(s): S16.1XXA - Strain of muscle, fascia and tendon at neck level, initial encounter
[2023-08-22] MEDS: SODIUM CHLORIDE 0.9% 1,000 ML IV ONE (02:56)
[2023-08-22] MEDS: ACETAMINOPHEN 1,000 MG/100 ML VIAL IV STA (02:57)
[2023-08-22] MEDS: OPTIRAY 320 125ml IV ONE (03:30)
--- NOTE | 2023-08-22 03:49 | CT Scan Report ---
Exam(s): CT C SPINE EXAM: CT Cervical Spine Without Intravenous Contrast CLINICAL HISTORY: Reason for exam: Trauma. TECHNIQUE: Axial computed tomography images of the cervical spine without intravenous contrast. CTDI is 27.02 mGy and DLP is 933.25 mGy-cm. Automated exposure control was utilized for the study. A dose lowering technique was utilized adhering to the principles of ALARA. COMPARISON: No relevant prior studies available. FINDINGS: No fracture or subluxations are noted. The vertebral body heights and alignment are preserved. No prevertebral soft tissue swelling. Note is made of multilevel cervical spondylosis with varying degrees of central canal and foramina stenoses. IMPRESSION: 1. No cervical fractures. 2. Cervical spondylosis with varying degrees of central canal and foramina stenoses. Electronically signed by: Clarence Mackay MD 08/22/23 03:48 AM
--- NOTE | 2023-08-22 03:59 | CT Scan Report ---
Exam(s): CT ABDOMEN + PELVIS With Contrast IV Amt: 118 ml optiray 320 EXAM: CT Abdomen and Pelvis With Intravenous Contrast CLINICAL HISTORY: Reason for exam: Trauma, left sided abdominal and hip pain. TECHNIQUE: Axial computed tomography images of the abdomen and pelvis with intravenous contrast. CTDI is 27.8 mGy and DLP is 1412.11 mGy-cm. Automated exposure control was utilized for the study. A dose lowering technique was utilized adhering to the principles of ALARA. CONTRAST: Patient received 118 ml optiray 320 of IV contrast COMPARISON: No relevant prior studies available. FINDINGS: Lung bases: branching nodular opacities at the left lower lobe. ABDOMEN: Liver: Unremarkable. No mass. Gallbladder and bile ducts: Unremarkable. No calcified stones. No ductal dilation. Pancreas: Unremarkable. No mass. No ductal dilation. Spleen: Unremarkable. No splenomegaly. Adrenals: Unremarkable. No mass. Kidneys and ureters: Unremarkable. No solid mass. No hydronephrosis. Stomach and bowel: Unremarkable. No obstruction. No mucosal thickening. PELVIS: Appendix: No findings to suggest acute appendicitis. Bladder: Unremarkable. No mass. Reproductive: Unremarkable as visualized. ABDOMEN and PELVIS: Intraperitoneal space: Unremarkable. No free air. No significant fluid collection. Bones/joints: Postoperative changes left hip arthroplasty moderate sized fluid collection about the left hip with subtle rim enhancement . Surgical clips overlying the left hip. No acute fracture. No dislocation. Soft tissues: Unremarkable. Vasculature: Unremarkable. No abdominal aortic aneurysm. Lymph nodes: Unremarkable. No enlarged lymph nodes. IMPRESSION: 1. Postoperative changes left hip arthroplasty with small amount of fluid adjacent to the left hip arthroplasty. This demonstrates mild rim enhancement. This may be secondary to the immediate postoperative state. No acute osseous pathology. 2. Branching nodular opacities involving the left lower lobe likely infectious or inflammatory etiology. Electronically signed by: Clarence Mackay MD 08/22/23 03:58 AM
--- NOTE | 2023-08-22 04:03 | CT Scan Report ---
Exam(s): CTA CHEST IV Amt: 118 ml optiray 320 EXAM: CT Angiography Chest With Intravenous Contrast CLINICAL HISTORY: Reason for exam: PE. TECHNIQUE: Axial computed tomographic angiography images of the chest with intravenous contrast. CTDI is 27.8 mGy and DLP is 1412.11 mGy-cm. Automated exposure control was utilized for the study. A dose lowering technique was utilized adhering to the principles of ALARA. MIP reconstructed images were created and reviewed. COMPARISON: No relevant prior studies available. FINDINGS: Pulmonary arteries: Right lower lobe subsegmental pulmonary emboli. Right upper lobe subsegmental pulmonary emboli. Left lower lobe subsegmental pulmonary emboli. No large central pulmonary embolus. No evidence of right heart strain. Aorta: No acute findings. No thoracic aortic aneurysm. Lungs: Unremarkable. No mass. No consolidation. Pleural space: Unremarkable. No significant effusion. No pneumothorax. Heart: Unremarkable. No cardiomegaly. No significant pericardial effusion. No evidence of RV dysfunction. Bones/joints: No acute fracture. No dislocation. Soft tissues: Unremarkable. Lymph nodes: Unremarkable. No enlarged lymph nodes. IMPRESSION: Subsegmental pulmonary emboli involving the right lower, right upper, and left lower lobe pulmonary arteries Communications: Call Doctor Pulmonary Embolism Electronically signed by: Clarence Mackay MD 08/22/23 04:02 AM
--- NOTE | 2023-08-22 04:05 | CT Scan Report ---
Exam(s): CT HEAD Without Contrast EXAM: CT Head Without Intravenous Contrast CLINICAL HISTORY: Reason for exam: Trauma, syncope. TECHNIQUE: Axial computed tomography images of the head/brain without intravenous contrast. CTDI is 24.2 mGy and DLP is 511.4 mGy-cm. Automated exposure control was utilized for the study. A dose lowering technique was utilized adhering to the principles of ALARA. COMPARISON: No relevant prior studies available. FINDINGS: Brain: Unremarkable. No hemorrhage. No significant white matter disease. No edema. Ventricles: Unremarkable. No ventriculomegaly. Bones/joints: Unremarkable. No acute fracture. Soft tissues: Unremarkable. Sinuses: Unremarkable as visualized. No acute sinusitis. Mastoid air cells: Unremarkable as visualized. No mastoid effusion. IMPRESSION: Normal head/brain CT. Electronically signed by: Clarence Mackay MD 08/22/23 04:04 AM
--- NOTE | 2023-08-22 04:07 | CT Scan Report ---
Exam(s): CT L SPINE With Contrast IV Amt: 118 ml optiray 320 EXAM: CT Lumbar Spine With Intravenous Contrast CLINICAL HISTORY: Reason for exam: Trauma. TECHNIQUE: Axial computed tomography images of the lumbar spine with intravenous contrast. CTDI is 27.02 mGy and DLP is 933.25 mGy-cm. Automated exposure control was utilized for the study. A dose lowering technique was utilized adhering to the principles of ALARA. CONTRAST: Patient received 118 ml optiray 320 of IV contrast COMPARISON: No relevant prior studies available. FINDINGS: Vertebrae: Unremarkable. No acute fracture. Discs/spinal canal/neural foramina: Bilateral moderate severe neural foraminal stenosis at And L1 L2-L5 S1 due to a degenerative disc bulge and bony hypertrophy. Soft tissues: Unremarkable. IMPRESSION: Bilateral moderate severe neural foraminal stenosis at And L1 L2-L5 S1 due to a degenerative disc bulge and bony hypertrophy. Electronically signed by: Clarence Mackay MD 08/22/23 04:05 AM
[2023-08-22] MEDS ORDERED: HEPARIN SOD (PORCINE) 1000 UNIT/ML IV ONE (04:28)
[2023-08-22] MEDS: HEPARIN SOD (PORCINE) 1000 UNIT/ML IV ONE (05:03)
[2023-08-22] MEDS: HEPARIN SODIUM/DEXTROSE 25,000 UNITS/500 ML BAG IV SCH (05:04)
[2023-08-22] MEDS: Heparin IV Adult Wt-Based Standard w/ INITIAL Bolus Protocol IV STA (05:05)
--- NOTE | 2023-08-22 06:18 | History & Physical Report ---
Date of Service August 22, 2023 Assessment & Plan (1) Syncope and collapse: Plan: 53-year-old male with past med history significant for chronic allergic rhinitis, mild persistent asthma, hypertension, degenerative disc disease, osteoarthritis left hip, s/p left hip replacement on August 07, 2023 comes in because of syncope and found to have acute PE. Patient states he got up and was going to bathroom when he felt dizzy and then passed out in the bathroom. He thinks he hit his head. He does not know how long he laid down. His noticed that he fell down. And brought him here and found to acute PE. Has some mild headache. No blurred vision. No runny nose or sore throat. No cough. Denies any chest pain or shortness of breath. No fevers. After getting up from fall felt nauseous. No abdominal pain. Constipated. Normal micturition. No fevers. Some pain at the surgical site. Currently resting comfortably and hemodynamically stable. Syncope and collapse Possibly from PE Telemetry Follow serial cardiac enzymes and echo Consult cardiology Acute PE Recently had left hip surgery Will follow lower extremity Doppler Will follow echo On IV heparin History of hypertension Continue losartan Will monitor History of asthma mild persistent Continue home inhalers GERD Protonix DVT prophylaxis IV heparin Disposition Telemetry Full code History of Present Illness Chief Complaint: Syncope, acute pulmonary embolism Primary Care Provider: Elly Hawkins MD 53-year-old male with past med history significant for chronic allergic rhinitis, mild persistent asthma, hypertension, degenerative disc disease, osteoarthritis left hip, s/p left hip replacement on August 07, 2023 comes in because of syncope and found to have acute PE. Patient states he got up and was going to bathroom when he felt dizzy and then passed out in the bathroom. He thinks he hit his head. He does not know how long he laid down. His noticed that he fell down. And brought him here and found to acute PE. Has some mild headache. No blurred vision. No runny nose or sore throat. No cough. Denies any chest pain or shortness of breath. No fevers. After getting up from fall felt nauseous. No abdominal pain. Constipated. Normal micturition. No fevers. Some pain at the surgical site. Currently resting comfortably and hemodynamically stable. Past medical history. As mentioned above Past surgical history. Appendectomy. Left hip replacement. Social history. . No smoking. No alcohol use. No drug use. Family history. Father had diabetes. Heart disease. Mother had diabetes. Allergies Allergy/AdvReac Type Severity Reaction Status Date / Time diclofenac AdvReac Intermediate Gastrointestinal Verified 08/07/23 05:37 Upset Home Medications Medication Instructions Recorded Confirmed Type albuterol sulfate 90 mcg/actuation 2 puff inhalation Q4H PRN 08/22/23 08/22/23 History aerosol inhaler Shortness Of Breath Or Wheezing aspirin 81 mg tablet,delayed 81 mg PO DAILY 08/22/23 08/22/23 History release benralizumab 30 mg/mL subcutaneous 30 mg subcut UD 08/22/23 08/22/23 History auto-injector fluticasone fur. 100 mcg-umeclid 1 inh inhalation DAILY 08/22/23 08/22/23 History 62.5 mcg-vilant 25 mcg inhalat.powder (Trelegy Ellipta) gabapentin 300 mg capsule 300 mg PO BID pain 08/22/23 08/22/23 History losartan 50 mg tablet 50 mg PO DAILY 08/22/23 08/22/23 History montelukast 10 mg tablet 10 mg PO DAILY 08/22/23 08/22/23 History omega-3 fatty acids 1,000 mg PO DAILY 08/22/23 08/22/23 History pantoprazole 40 mg tablet,delayed 40 mg PO DAILY 08/22/23 08/22/23 History release Past Med/Surg History Medical History Asthma Hypertension Arthritis of left hip Allergic rhinitis History of COVID-19 05/2022- fever, shortness of breath, cough > resolved Plantar fasciitis Occasional flares GERD (gastroesophageal reflux disease) Controlled Surgical History History of colonoscopy History of wisdom tooth extraction History of esophagogastroduodenoscopy (EGD) S/P tooth extraction S/P appendectomy Family History Family/Other Diabetes Hypertension Father Skin cancer Prostate cancer Diabetes Coronary heart disease Other Encounter for pre-operative examination No family history of adverse response to anesthesia Denies family history of Ovarian cancer Myocardial infarction Breast cancer Colorectal cancer Social History Smoking Status: Never smoker Second Hand Exposure: Yes (as kid); Do You Dip or Chew Tobacco: No; Hx Alcohol Use: No Hx Substance Use: No Preferred Language: Korean Communication Ability: Effective Visual Impairment: No Limitations Hearing Ability: Normal Branch Maker Required: No Beliefs That Will Affect Care: None marital status: Single Current Living Situation: Spouse current occupational status: employed 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 ENT- oropharynx clear Neck- supple, no JVD. Lungs- clear to auscultation no wheezing or crackles. Heart- regular rhythm; no murmur, no gallop, no rub appreciated Abdomen- normal bowel sounds, soft, nontender, no distension. Extremities- no pretibial edema, no erythema seen. Neuro- alert, oriented x 3; PERRL, no facial palsy; no dysarthria; moves extremities. Skin- warm & dry Results & Data Results & Data Vital Signs (Past 12 Hours) Vital Signs Temp Pulse Pulse Resp BP BP Pulse Ox 08/22/23 02:46 64 16 96 08/22/23 02:06 64 08/22/23 02:00 63 16 127/67 97 08/22/23 00:54 36.9 C 72 16 107/69 96 O2 Del Method 08/22/23 02:46 Room Air 08/22/23 02:06 08/22/23 02:00 Room Air 08/22/23 00:54 Room Air Diagnostic Findings Laboratory Results WBC 7.42 K/ul (4.8-10.8) 08/22/23 01:10 RBC 4.59 M/uL (4.70-6.10) L 08/22/23 01:10 Hgb 13.6 g/dl (14.0-18.0) L 08/22/23 01:10 Hct 40.0 % (42.0-52.0) L 08/22/23 01:10 MCV 87.1 fL (80.0-100.0) 08/22/23 01:10 MCH 29.6 pg (25.0-34.0) 08/22/23 01:10 MCHC 34.0 g/dL (32.0-36.0) 08/22/23 01:10 RDW Std Deviation 41.1 fL (36.4-46.3) 08/22/23 01:10 RDW Coeff of [place] 13.0 % (11.5-14.5) 08/22/23 01:10 Plt Count 236 K/uL (130-400) 08/22/23 01:10 MPV 9.1 fL (9.4-12.4) L 08/22/23 01:10 Immature Gran % (Auto) 0.3 % 08/22/23 01:10 Neut % (Auto) 74.0 % 08/22/23 01:10 Lymph % (Auto) 17.8 % 08/22/23 01:10 Larue % (Auto) 7.8 % 08/22/23 01:10 Eos % (Auto) 0.0 % 08/22/23 01:10 Baso % (Auto) 0.1 % 08/22/23 01:10 Neut # (Auto) 5.49 K/uL (1.40-6.50) 08/22/23 01:10 Lymph # (Auto) 1.32 K/uL (1.20-3.40) 08/22/23 01:10 Larue # (Auto) 0.58 K/uL (0.11-0.59) 08/22/23 01:10 Eos # (Auto) 0.00 K/uL (0.00-0.50) 08/22/23 01:10 Baso # (Auto) 0.01 K/uL (0.00-0.20) 08/22/23 01:10 Immature Gran # (Auto) 0.02 K/uL (0.01-0.20) 08/22/23 01:10 PT 10.9 Seconds (9.0-12.0) 08/22/23 01:10 INR 1.0 (0.9-1.1) 08/22/23 01:10 APTT 28 Seconds (21-31) 08/22/23 01:10 PTT Ratio 1.0 08/22/23 01:10 D-Dimer 27549 ug/L FEU (0-500) H* 08/22/23 01:10 Sodium 138 mmol/L (136-145) 08/22/23 01:10 Potassium 4.3 mmol/L (3.5-5.1) 08/22/23 01:10 Chloride 104 mmol/L (98-107) 08/22/23 01:10 Carbon Dioxide 29 mmol/L (21-32) 08/22/23 01:10 Anion Gap 5 (3-11) 08/22/23 01:10 BUN 21 mg/dl (6-23) 08/22/23 01:10 Creatinine 1.11 mg/dl (0.6-1.4) 08/22/23 01:10 Est Cr Clr Drug Dosing 90.2 ml/min 08/22/23 01:10 Est GFR ( Amer) 88.0 ml/min 08/22/23 01:10 Est GFR (Non-Af Amer) 75.9 ml/min 08/22/23 01:10 BUN/Creatinine Ratio 18.9 (10-20) 08/22/23 01:10 Glucose 96 mg/dl (70-99(Fasting)) 08/22/23 01:10 Calcium 9.4 mg/dl (8.6-10.3) 08/22/23 01:10 Magnesium 2.0 mg/dl (1.7-2.4) 08/22/23 01:10 Total Bilirubin 0.5 mg/dl (0.2-1.0) 08/22/23 01:10 AST 21 U/L (13-39) 08/22/23 01:10 ALT 24 U/L (7-52) 08/22/23 01:10 Alkaline Phosphatase 114 U/L (34-104) H 08/22/23 01:10 Troponin I High Sens 2.6 pg/ml (0-20) 08/22/23 01:10 Total Protein 6.8 gm/dl (6.0-8.3) 08/22/23 01:10 Albumin 4.4 gm/dl (3.4-5.0) 08/22/23 01:10 Globulin 2.4 gm/dl (2.5-4.0) L 08/22/23 01:10 Albumin/Globulin Ratio 1.8 (0.9-2) 08/22/23 01:10 Impressions Abdomen/Pelvis CT 08/22/23 02:45 Exam(s): CT ABDOMEN + PELVIS With Contrast IV Amt: 118 ml optiray 320 EXAM: CT Abdomen and Pelvis With Intravenous Contrast CLINICAL HISTORY: Reason for exam: Trauma, left sided abdominal and hip pain. TECHNIQUE: Axial computed tomography images of the abdomen and pelvis with intravenous contrast. CTDI is 27.8 mGy and DLP is 1412.11 mGy-cm. Automated exposure control was utilized for the study. A dose lowering technique was utilized adhering to the principles of ALARA. CONTRAST: Patient received 118 ml optiray 320 of IV contrast COMPARISON: No relevant prior studies available. FINDINGS: Lung bases: branching nodular opacities at the left lower lobe. ABDOMEN: Liver: Unremarkable. No mass. Gallbladder and bile ducts: Unremarkable. No calcified stones. No ductal dilation. Pancreas: Unremarkable. No mass. No ductal dilation. Spleen: Unremarkable. No splenomegaly. Adrenals: Unremarkable. No mass. Kidneys and ureters: Unremarkable. No solid mass. No hydronephrosis. Stomach and bowel: Unremarkable. No obstruction. No mucosal thickening. PELVIS: Appendix: No findings to suggest acute appendicitis. Bladder: Unremarkable. No mass. Reproductive: Unremarkable as visualized. ABDOMEN and PELVIS: Intraperitoneal space: Unremarkable. No free air. No significant fluid collection. Bones/joints: Postoperative changes left hip arthroplasty moderate sized fluid collection about the left hip with subtle rim enhancement . Surgical clips overlying the left hip. No acute fracture. No dislocation. Soft tissues: Unremarkable. Vasculature: Unremarkable. No abdominal aortic aneurysm. Lymph nodes: Unremarkable. No enlarged lymph nodes. IMPRESSION: 1. Postoperative changes left hip arthroplasty with small amount of fluid adjacent to the left hip arthroplasty. This demonstrates mild rim enhancement. This may be secondary to the immediate postoperative state. No acute osseous pathology. 2. Branching nodular opacities involving the left lower lobe likely infectious or inflammatory etiology. Electronically signed by: Clarence Mackay MD 08/22/23 03:[address] 08/22/23 02:45 Exam(s): CT C SPINE EXAM: CT Cervical Spine Without Intravenous Contrast CLINICAL HISTORY: Reason for exam: Trauma. TECHNIQUE: Axial computed tomography images of the cervical spine without intravenous contrast. CTDI is 27.02 mGy and DLP is 933.25 mGy-cm. Automated exposure control was utilized for the study. A dose lowering technique was utilized adhering to the principles of ALARA. COMPARISON: No relevant prior studies available. FINDINGS: No fracture or subluxations are noted. The vertebral body heights and alignment are preserved. No prevertebral soft tissue swelling. Note is made of multilevel cervical spondylosis with varying degrees of central canal and foramina stenoses. IMPRESSION: 1. No cervical fractures. 2. Cervical spondylosis with varying degrees of central canal and foramina stenoses. Electronically signed by: Clarence Mackay MD 08/22/23 03:48 AM Chest CTA 08/22/23 02:45 CR Exam(s): CTA CHEST IV Amt: 118 ml optiray 320 EXAM: CT Angiography Chest With Intravenous Contrast CLINICAL HISTORY: Reason for exam: PE. TECHNIQUE: Axial computed tomographic angiography images of the chest with intravenous contrast. CTDI is 27.8 mGy and DLP is 1412.11 mGy-cm. Automated exposure control was utilized for the study. A dose lowering technique was utilized adhering to the principles of ALARA. MIP reconstructed images were created and reviewed. COMPARISON: No relevant prior studies available. FINDINGS: Pulmonary arteries: Right lower lobe subsegmental pulmonary emboli. Right upper lobe subsegmental pulmonary emboli. Left lower lobe subsegmental pulmonary emboli. No large central pulmonary embolus. No evidence of right heart strain. Aorta: No acute findings. No thoracic aortic aneurysm. Lungs: Unremarkable. No mass. No consolidation. Pleural space: Unremarkable. No significant effusion. No pneumothorax. Heart: Unremarkable. No cardiomegaly. No significant pericardial effusion. No evidence of RV dysfunction. Bones/joints: No acute fracture. No dislocation. Soft tissues: Unremarkable. Lymph nodes: Unremarkable. No enlarged lymph nodes. IMPRESSION: Subsegmental pulmonary emboli involving the right lower, right upper, and left lower lobe pulmonary arteries Communications: Call Doctor Pulmonary Embolism Electronically signed by: Clarence Mackay MD 08/22/23 04:[address] 08/22/23 02:45 Exam(s): CT HEAD Without Contrast EXAM: CT Head Without Intravenous Contrast CLINICAL HISTORY: Reason for exam: Trauma, syncope. TECHNIQUE: Axial computed tomography images of the head/brain without intravenous contrast. CTDI is 24.2 mGy and DLP is 511.4 mGy-cm. Automated exposure control was utilized for the study. A dose lowering technique was utilized adhering to the principles of ALARA. COMPARISON: No relevant prior studies available. FINDINGS: Brain: Unremarkable. No hemorrhage. No significant white matter disease. No edema. Ventricles: Unremarkable. No ventriculomegaly. Bones/joints: Unremarkable. No acute fracture. Soft tissues: Unremarkable. Sinuses: Unremarkable as visualized. No acute sinusitis. Mastoid air cells: Unremarkable as visualized. No mastoid effusion. IMPRESSION: Normal head/brain CT. Electronically signed by: Clarence Mackay MD 08/22/23 04:[address] 08/22/23 02:45 Exam(s): CT L SPINE With Contrast IV Amt: 118 ml optiray 320 EXAM: CT Lumbar Spine With Intravenous Contrast CLINICAL HISTORY: Reason for exam: Trauma. TECHNIQUE: Axial computed tomography images of the lumbar spine with intravenous contrast. CTDI is 27.02 mGy and DLP is 933.25 mGy-cm. Automated exposure control was utilized for the study. A dose lowering technique was utilized adhering to the principles of ALARA. CONTRAST: Patient received 118 ml optiray 320 of IV contrast COMPARISON: No relevant prior studies available. FINDINGS: Vertebrae: Unremarkable. No acute fracture. Discs/spinal canal/neural foramina: Bilateral moderate severe neural foraminal stenosis at And L1 L2-L5 S1 due to a degenerative disc bulge and bony hypertrophy. Soft tissues: Unremarkable. IMPRESSION: Bilateral moderate severe neural foraminal stenosis at And L1 L2-L5 S1 due to a degenerative disc bulge and bony hypertrophy. Electronically signed by: Clarence Mackay MD 08/22/23 04:05 AM ECG Additional Comments: ECG. Normal sinus rhythm with rate of 68. No significant change was found. Code Status & VTE Plan VTE Prophylaxis Plan VTE Prophylaxis will be ordered: Yes
--- NOTE | 2023-08-22 06:40 | Ultrasound Report ---
LEFT LOWER EXTREMITY VENOUS DOPPLER HISTORY: Acute pain and swelling of left lower leg eval DVT COMPARISON STUDY: None. FINDINGS: There is normal compressibility, flow, and augmentation within the left lower extremity mann p venous system. IMPRESSION: No DVT within the left lower extremity. ACT 112: Negative or not required by law. Electronically signed by: Abhishek Mccormack M.D. 08/22/2023 6:39 AM
[2023-08-22 07:06] LABS: Appearance Urine Clear (Clear); Bilirubin Urine Negative (Negative); Blood Urine Negative (Negative); Color Urine Yellow; Glucose Urine UA Negative (Negative); Ketones Urine Negative (Negative); Leukocyte Esterase Urine Negative (Negative); Nitrite Urine Negative (Negative); Protein Urine Negative (Negative); Urobilinogen Urine Negative (Negative); pH Urine 7.5 (4.5-7.5)
[2023-08-22] MEDS ORDERED: NITROGLYCERIN SL 0.4 MG/TAB TAB SL PRN (07:39)
[2023-08-22] MEDS ORDERED: POLYETHYLENE (MIRALAX) 17 GM PACK PO PRN (07:39)
--- NOTE | 2023-08-22 08:12 | Electrocardiogram Report ---
Test Reason : Blood Pressure : / mmHG Vent. Rate : 068 BPM Atrial Rate : 068 BPM P-R Int : 166 ms QRS Dur : 094 ms QT Int : 374 ms P-R-T Axes : 068 056 075 degrees QTc Int : 397 ms Normal sinus rhythm Normal ECG When compared with ECG of 24-JUL-2023 09:55, No significant change was found Confirmed by Isaiah Byrd ([id number]) on 08/22/2023 8:12:41 AM Referred By: REFERRED SELF Confirmed By:Isaiah Byrd
[2023-08-22] MEDS: SODIUM CHLORIDE 0.9% 1,000 ML IV SCH (08:39)
[2023-08-22] MEDS: ASPIRIN 81 MG ECTAB PO SCH (08:42)
[2023-08-22] MEDS: LOSARTAN POTASSIUM 50 MG TAB PO SCH (08:42)
[2023-08-22] MEDS: GABAPENTIN 300 MG CAP PO SCH (08:42)
[2023-08-22] MEDS: PANTOprazole 40 MG TAB PO SCH (08:43)
[2023-08-22] MEDS: ACETAMINOPHEN 325 MG TAB PO PRN (08:43)
[2023-08-22] MEDS: MONTELUKAST SODIUM 10 MG TABLET PO SCH (08:43)
[2023-08-22] MEDS: UMECLIDINIUM/VILANTEROL 62.5/25MCG 7 PUFFS/INHALER INH SCH (08:44)
[2023-08-22] MEDS: FLUTICASONE FUROATE 100MCG 14 PUFFS/INHALER INH SCH (08:45)
[2023-08-22] MEDS ORDERED: NON-FORMULARY MEDICATION (Fluticasone-Umeclidin-Vilanter [Trelegy Ellipta] 100-62.5-25 mcg INH SCH (09:00)
--- NOTE | 2023-08-22 10:16 | Ultrasound Report ---
US venous doppler LE RT HISTORY: 53 years-old Male acute PE. DVT? Acute pain and swallowing of the right lower leg COMPARISON: None TECHNIQUE: Multiple real-time sonographic images of the right lower extremity deep venous structures were obtained assessing grayscale appearance, color and spectral flow. FINDINGS: Normal flow, compressibility, phasicity and augmentation. IMPRESSION: No sonographic evidence of deep venous thrombosis. ACT 112: Negative or not required by law. The above report was generated using voice recognition software. It may contain grammatical, syntax o r spelling errors. Electronically signed by: Abhishek Mccormack M.D. 08/22/2023 10:15 AM
[2023-08-22] MEDS: ALBUTEROL HFA 8 GM INHALER INH PRN (11:15)
[2023-08-22 11:30] LABS: ANTI-Xa, UFH(UnfractionatedHep 0.64 IU/ml (0.3-0.7)
--- NOTE | 2023-08-22 11:39 | Cardiology Consultation ---
Date of Consultation August 22, 2023 Assessment & Plan (1) Syncope and collapse: (2) Acute pulmonary embolism without acute cor pulmonale: Plan 53-year-old male with recent orthopedic surgery presents with syncope and CT evidence of pulmonary embolus. PE most likely etiology of syncope. No evidence of DVT per duplex, however, event likely provoked by recent surgery. No evidence of dysrhythmia on telemetry since admission. Bedside echocardiogram revealing normal biventricular function, no evidence of RV strain or pulmonary hypertension. Continue telemetry monitoring while hospitalized. Replace electrolytes to maintain adequate hydration. Recommend outpatient 14-day ZIO monitor upon discharge. Anticoagulation as per internal medicine. Thank you for allowing me to participate in the care of your patient. History of Present Illness Reason for Consultation: Syncope Requesting Physician: Dr. Aguilar Attending Physician: Serafin Workman MD History of Present Illness 53-year-old male presented to the emergency department with syncope. CTA of the chest demonstrating pulmonary embolus involving the right lower lobe, right upper lobe, and left lower lobe. IV heparin initiated. Patient reports ambulating with his walker when he became suddenly lightheaded and fell backwards. heard a loud noise and came to assess him. He was conscious on the floor. Denies chest discomfort or unusual shortness of breath. Reports discomfort involving his left lower EXTR extremity related to recent hip replacement 08/07/2023. Reports significant bruising in his posterior thigh and behind his left knee. Venous duplex negative for DVT. Remains in sinus rhythm on telemetry. Preliminary review of bedside echocardiogram demonstrates normal biventricular function without evidence of pulmonary hypertension or pericardial effusion. Allergies Allergy/AdvReac Type Severity Reaction Status Date / Time diclofenac AdvReac Intermediate Gastrointestinal Verified 08/07/23 05:37 Upset Home Medications Medication Instructions Recorded Confirmed Type albuterol sulfate 90 mcg/actuation 2 puff inhalation Q4H PRN 08/22/23 08/22/23 History aerosol inhaler Shortness Of Breath Or Wheezing aspirin 81 mg tablet,delayed 81 mg PO DAILY 08/22/23 08/22/23 History release benralizumab 30 mg/mL subcutaneous 30 mg subcut UD 08/22/23 08/22/23 History auto-injector fluticasone fur. 100 mcg-umeclid 1 inh inhalation DAILY 08/22/23 08/22/23 History 62.5 mcg-vilant 25 mcg inhalat.powder (Trelegy Ellipta) gabapentin 300 mg capsule 300 mg PO BID pain 08/22/23 08/22/23 History losartan 50 mg tablet 50 mg PO DAILY 08/22/23 08/22/23 History montelukast 10 mg tablet 10 mg PO DAILY 08/22/23 08/22/23 History omega-3 fatty acids 1,000 mg PO DAILY 08/22/23 08/22/23 History pantoprazole 40 mg tablet,delayed 40 mg PO DAILY 08/22/23 08/22/23 History release Patient History Medical History Asthma Hypertension Arthritis of left hip Allergic rhinitis History of COVID-19 05/2022- fever, shortness of breath, cough > resolved Plantar fasciitis Occasional flares GERD (gastroesophageal reflux disease) Controlled Surgical History History of colonoscopy History of wisdom tooth extraction History of esophagogastroduodenoscopy (EGD) S/P tooth extraction S/P appendectomy Family History Family/Other Diabetes Hypertension Father Skin cancer Prostate cancer Diabetes Coronary heart disease Other Encounter for pre-operative examination No family history of adverse response to anesthesia Denies family history of Ovarian cancer Myocardial infarction Breast cancer Colorectal cancer Social History Smoking Status: Never smoker Second Hand Exposure: Yes (as kid); Do You Dip or Chew Tobacco: No; Hx Alcohol Use: No Hx Substance Use: No Preferred Language: Greenlandic Communication Ability: Effective Visual Impairment: No Limitations Hearing Ability: Normal Gauge Checker Required: No Beliefs That Will Affect Care: None marital status: Single Current Living Situation: Spouse current occupational status: employed 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 Other Information That Helps Us Care for You: No Feels Safe at Home: Yes Safety Concerns: Feels Safe At This Time Childhood Exposure to Second-Hand Smoke: Yes Diet: regular caffeine: Yes Dental Care, Regularly: No Physical Activity Frequency: Does not Exercise Seatbelt Use: always Sunscreen Use: Yes Assistive Devices: Glasses and Walker Review of Systems Review of Systems: All systems reviewed & are unremarkable except as noted in Subjective Physical Exam Constitutional: well nourished; no acute distress Respiratory: no respiratory distress, no labored breathing and no retractions Auscultation: lungs clear to auscultation bilaterally; no crackles, no rales, no rhonchi and no wheezes Cardiovascular: Rate/Rhythm: regular rate and regular rhythm Heart Sounds: normal S1 and normal S2; no murmur Vessels: no JVD and no carotid bruit Extremities: no edema Gastrointestinal (Abdomen): Inspection/Auscultation: + abdomen abnormal to inspection and abdomen not distended Percussion/Palpation: abdomen nontender, no guarding, abdomen not rigid and + abdomen not soft Neurologic: + CN's not intact and + does not move al l extremities Results & Data Vital Signs (Past 12 Hours) Vital Signs Temp Pulse Pulse Resp BP BP Pulse Ox 08/22/23 11:12 60 18 119/58 L 98 08/22/23 10:19 08/22/23 10:16 74 15 120/76 96 08/22/23 10:14 90 15 120/73 98 08/22/23 07:50 81 08/22/23 07:30 58 L 12 99 08/22/23 07:30 111/61 08/22/23 07:06 62 18 120/65 96 08/22/23 05:00 84 19 08/22/23 04:30 69 16 99 08/22/23 04:30 126/73 08/22/23 04:30 126/73 08/22/23 04:00 118/68 08/22/23 04:00 70 23 97 08/22/23 03:30 67 17 97 08/22/23 03:30 122/67 08/22/23 03:24 127/56 L 08/22/23 03:24 96 08/22/23 03:00 58 L 13 99 08/22/23 03:00 133/69 08/22/23 02:46 64 16 96 08/22/23 02:30 59 L 15 96 08/22/23 02:30 122/52 L 08/22/23 02:30 122/52 L 08/22/23 02:06 64 08/22/23 02:05 64 15 96 08/22/23 02:00 63 16 127/67 97 08/22/23 00:54 36.9 C 72 16 107/69 96 O2 Del Method 08/22/23 11:12 Room Air 08/22/23 10:19 Room Air 08/22/23 10:16 Room Air 08/22/23 10:14 Room Air 08/22/23 07:50 08/22/23 07:30 Room Air 08/22/23 07:30 08/22/23 07:06 Room Air 08/22/23 05:00 08/22/23 04:30 08/22/23 04:30 08/22/23 04:30 08/22/23 04:00 08/22/23 04:00 08/22/23 03:30 08/22/23 03:30 08/22/23 03:24 08/22/23 03:24 08/22/23 03:00 08/22/23 03:00 08/22/23 02:46 Room Air 08/22/23 02:30 08/22/23 02:30 08/22/23 02:30 08/22/23 02:06 08/22/23 02:05 08/22/23 02:00 Room Air 08/22/23 00:54 Room Air Laboratory Results Cardiac Enzymes 08/22/23 08/22/23 Range/Units 01:10 08:18 AST 21 (13-39) U/L Troponin I High Sens 2.6 2.5 (0-20) pg/ml Coagulation 08/22/23 Range/Units 01:10 PT 10.9 (9.0-12.0) Seconds APTT 28 (21-31) Seconds CBC 08/22/23 Range/Units 01:10 WBC 7.42 (4.8-10.8) K/ul RBC 4.59 L (4.70-6.10) M/uL Hgb 13.6 L (14.0-18.0) g/dl Hct 40.0 L (42.0-52.0) % Plt Count 236 (130-400) K/uL Neut # (Auto) 5.49 (1.40-6.50) K/uL Lymph # (Auto) 1.32 (1.20-3.40) K/uL [place] # (Auto) 0.58 (0.11-0.59) K/uL Eos # (Auto) 0.00 (0.00-0.50) K/uL Baso # (Auto) 0.01 (0.00-0.20) K/uL Comprehensive Metabolic Panel 08/22/23 Range/Units 01:10 Sodium 138 (136-145) mmol/L Potassium 4.3 (3.5-5.1) mmol/L Chloride 104 (98-107) mmol/L Carbon Dioxide 29 (21-32) mmol/L BUN 21 (6-23) mg/dl Creatinine 1.11 (0.6-1.4) mg/dl Glucose 96 (70-99(Fasting)) mg/dl Calcium 9.4 (8.6-10.3) mg/dl AST 21 (13-39) U/L ALT 24 (7-52) U/L Alkaline Phosphatase 114 H (34-104) U/L Total Protein 6.8 (6.0-8.3) gm/dl Albumin 4.4 (3.4-5.0) gm/dl Intake and Output 08/21/23 08/22/23 08/22/23 22:59 06:59 14:59 Intake Total 1100 / 1100 Output Total 700 / 700 Balance 1100 / 1100 -700 / -700 Intake: IV 1100 / 1100 Acetaminophen 1,000 mg In 100 100 / 100 ml @ 400 mls/hr IV NOW STA Rx#: [id number] Sodium Chloride 0.9% 1,000 ml @ 1000 / 1000 999 mls/hr IV .Q1H1M ONE Rx#: [id number] Output: Urine 700 / 700 Other: Weight 95.4 kg Weight Measurement Method Chair Scale (2) Acute pulmonary embolism without acute cor pulmonale Pulmonary embolism type: other Qualified Code(s): I26.99 - Other pulmonary embolism without acute cor pulmonale
--- NOTE | 2023-08-22 16:12 | Hospitalist Progress Note ---
Date of Service August 22, 2023 Assessment & Plan (1) Syncope and collapse: Plan: Patient is a 53 yr male with H/O Chronic allergic rhinitis, mild persistent asthma, hypertension, degenerative disc disease, osteoarthritis left hip, s/p left hip replacement on August 07, 2023 comes in because of syncope and found to have acute PE. Patient also reports a syncopal episode resulting in fall. Syncope and collapse Possibly from PE --CT head: Normal head/brain CT. --ECHO: Left ventricular systolic function is normal. EF 60 to 65%. Right ventricle is normal size. Right ventricular systolic function is normal. No significant valvular pathology. --Check orthostatics -- Monitor on telemetry Appreciate Cardiology Input Needs 14-day ZIO monitor on discharge Needs follow-up with cardiology on discharge Acute PE Likely due to immobilization from recent left hip surgery --CTA:Subsegmental pulmonary emboli involving the right lower, right upper, and left lower lobe pulmonary arteries -- Left LE Doppler:No DVT within the left lower extremity. -- Right LE Doppler:No sonographic evidence of deep venous thrombosis. -- Echo as above Continue IV heparin Likely transition to apixaban tomorrow Saturating well on room air S/P left hip total arthroplasty by Dr. Hernandez on 08/07/2023 --CT: Postoperative changes left hip arthroplasty with small amount of fluid adjacent to the left hip arthroplasty. This demonstrates mild rim enhancement. This may be secondary to the immediate postoperative state. No acute osseous pathology. Pain control Fall precautions Lumbar spinal stenosis Incidental finding on lumbar CT --Lumbar CT:Bilateral moderate severe neural foraminal stenosis at And L1 L2-L5 S1 due to a degenerative disc bulge and bony hypertrophy. Follow-up with orthopedics as outpatient Hypertension Continue losartan monitor BP H/O Asthma mild persistent Continue home inhalers GERD Continue Protonix DVT Px: IV heparin Code Status Full code Admission and Anticipated Discharge Date Admission Date: August 22, 2023 Subjective Patient is seen and examined at bedside States feeling much better today Dyspnea much improved Currently on IV heparin Denies any bleeding issues Also denies any chest pain, dizziness, nausea, vomiting, abdominal pain Left hip pain at surgical site is controlled Discussed with patient's family at bedside Saturating well on room air Review of Systems Review of Systems: All systems reviewed & are unremarkable except as noted in Subjective Physical Exam Physical Exam: Physical Exam: Vitals signs as noted above General Appearance:Moderately built and nourished, no apparent distress Head: normocephalic, Atraumatic Eyes: normal inspection, EOMI Neck: supple, Trachea midline Respiratory/Chest: Normal breath sounds, CTA, No accessory muscle use Cardiovascular: S1, S2, No murmur Abdomen/GI:Soft, Non tender, Bowel sounds present Extremities/Musculoskeletal:normal inspection, no edema, Left hip surgical site, mild edema Neurologic/Psych:AAOX3, grossly no focal neurological deficits Skin: normal color, warm Results & Data Results & Data Vital Signs (Past 12 Hours) Vital Signs Pulse Pulse Resp BP BP Pulse Ox O2 Del Method 08/22/23 15:28 74 08/22/23 14:23 83 85 H 137/75 97 Room Air 08/22/23 11:12 60 18 119/58 L 98 Room Air 08/22/23 10:19 Room Air 08/22/23 10:16 74 15 120/76 96 Room Air 08/22/23 10:14 90 15 120/73 98 Room Air 08/22/23 07:50 81 08/22/23 07:30 58 L 12 99 Room Air 08/22/23 07:30 111/61 08/22/23 07:06 62 18 120/65 96 Room Air 08/22/23 05:00 84 19 08/22/23 04:30 69 16 99 08/22/23 04:30 126/73 08/22/23 04:30 126/73
--- NOTE | 2023-08-22 19:56 | Surgery Progress Note ---
Date of Service August 22, 2023 Assessment & Plan (1) Acute pulmonary embolism without acute cor pulmonale: Plan: Treatment as per medicine service. (2) Status post left hip replacement: Plan: Resume PT. MARY KAY stocking. Full WBAT. Total hip precautions. Follow up on Monday for staple removal. Admission and Anticipated Discharge Date Admission Date: August 22, 2023 Subjective %3 year old male with history of Mild Asthma now 2 weeks from Left THR admitted with PE. Patient has noticed slight SOB past few days, but felt do be his normal Asthma symptoms. [place] light-headed last PM and had syncopal event. Feeling fine now. No CP or SOB. Hip pain is controlled. Physical Exam Physical Exam: Physical exam reveals pleasant male lying in bed in no distress. Does not appear SOB or uncomfortable. Hip incision is well approximated with mild swelling. Small tape blisters resolving. No drainage. Leg lengths equal. N/V intact. Hip located. Results & Data Vital Signs (Past 12 Hours) Vital Signs Temp Pulse Pulse Resp BP BP Pulse Ox 08/22/23 19:30 36.9 C 69 20 139/75 96 08/22/23 17:02 36.7 C 69 19 139/82 97 08/22/23 16:58 08/22/23 16:17 71 18 117/80 96 08/22/23 15:28 74 08/22/23 14:23 83 85 H 137/75 97 08/22/23 11:12 60 18 119/58 L 98 08/22/23 10:19 08/22/23 10:16 74 15 120/76 96 08/22/23 10:14 90 15 120/73 98 08/22/23 07:50 81 O2 Del Method 08/22/23 19:30 Room Air 08/22/23 17:02 Room Air 08/22/23 16:58 Room Air 08/22/23 16:17 Room Air 08/22/23 15:28 08/22/23 14:23 Room Air 08/22/23 11:12 Room Air 08/22/23 10:19 Room Air 08/22/23 10:16 Room Air 08/22/23 10:14 Room Air 08/22/23 07:[address] Chest reveals Bilateral PEs. PG Care Time/CCT Total # of Minutes Spent Total Time Spent with Patient: Total time spent is greater than 50% in coordination of care (as documented) at patient's floor/unit and/or counseling patient: Coding Level of Care Code None Diagnoses Other acute pulmonary embolism without acute cor pulmonale I26.99 Pulmonary embolism type: unspecified Status post left hip replacement Z96.642 (1) Acute pulmonary embolism without acute cor pulmonale Pulmonary embolism type: unspecified Qualified Code(s): I26.99 - Other pulmonary embolism without acute cor pulmonale
[2023-08-23 05:55] LABS: Hematocrit (blood only) 35.8 % (42.0-52.0); Hemoglobin 11.9 g/dl (14.0-18.0); Immature Granulocytes # (auto) 0.01 K/uL (0.01-0.20); Immature Granulocytes % (auto) 0.2 %; Lymphocytes # (auto) 1.01 K/uL (1.20-3.40); Lymphocytes % (auto) 19.4 %; Mean Corpuscular Hgb Conc 33.2 g/dL (32.0-36.0); Mean Corpuscular Volume 87.3 fL (80.0-100.0); Mean Platelet Volume 9.2 fL (9.4-12.4); Monocytes # (auto) 0.46 K/uL (0.11-0.59); Monocytes % (auto) 8.8 %; Neutrophils # (auto) 3.73 K/uL (1.40-6.50); Neutrophils % (auto) 71.6 %; Platelet Count 198 K/uL (130-400); RDW Standard Deviation 40.6 fL (36.4-46.3); White Blood Count 5.21 K/ul (4.8-10.8)
[2023-08-23 06:14] LABS: BUN Creatinine Ratio 18.9 (10-20); Calcium 8.7 mg/dl (8.6-10.3); Creatinine Clr Calc Pharmacy 109.2 ml/min; Est GFR (African American) 113.4 ml/min; Est GFR (Non-African American) 97.9 ml/min; Magnesium 1.9 mg/dl (1.7-2.4); Potassium 3.8 mmol/L (3.5-5.1)
[2023-08-23 06:28] LABS: ANTI-Xa, UFH(UnfractionatedHep 0.63 IU/ml (0.3-0.7)
--- NOTE | 2023-08-23 10:57 | Electrocardiogram Report ---
Test Reason : Blood Pressure : / mmHG Vent. Rate : 070 BPM Atrial Rate : 070 BPM P-R Int : 164 ms QRS Dur : 098 ms QT Int : 382 ms P-R-T Axes : 059 060 074 degrees QTc Int : 412 ms Normal sinus rhythm Normal ECG When compared with ECG of 22-AUG-2023 01:02, No significant change was found Confirmed by Isaiah Byrd ([id number]) on 08/23/2023 10:56:59 AM Referred By: REFERRED SELF Confirmed By:Isaiah Byrd
[2023-08-23] MEDS: APIXABAN 5 MG TABLET PO SCH (11:14)
--- NOTE | 2023-08-23 13:57 | Hospitalist Progress Note ---
Date of Service August 23, 2023 Assessment & Plan (1) Syncope and collapse: Plan: Patient is a 53 yr male with H/O Chronic allergic rhinitis, mild persistent asthma, hypertension, degenerative disc disease, osteoarthritis left hip, s/p left hip replacement on August 07, 2023 comes in because of syncope and found to have acute PE. Patient also reports a syncopal episode resulting in fall. Syncope and collapse Possibly from PE --CT head: Normal head/brain CT. --ECHO: Left ventricular systolic function is normal. EF 60 to 65%. Right ventricle is normal size. Right ventricular systolic function is normal. No significant valvular pathology. -- Monitor on telemetry-- no issues Appreciate Cardiology Input Needs 14-day ZIO monitor on discharge Needs follow-up with cardiology on discharge Acute PE Likely due to immobilization from recent left hip surgery --CTA:Subsegmental pulmonary emboli involving the right lower, right upper, and left lower lobe pulmonary arteries -- Left LE Doppler:No DVT within the left lower extremity. -- Right LE Doppler:No sonographic evidence of deep venous thrombosis. -- Echo as above Continue IV heparin>>> transition to Eliquis 2 Step: Does not qualify for supplemental oxygen Saturating well on room air S/P left hip total arthroplasty by Dr. Hernandez on 08/07/2023 --CT: Postoperative changes left hip arthroplasty with small amount of fluid adjacent to the left hip arthroplasty. This demonstrates mild rim enhancement. This may be secondary to the immediate postoperative state. No acute osseous pathology. Pain control Fall precautions Appreciate orthopedics input Lumbar spinal stenosis Incidental finding on lumbar CT --Lumbar CT:Bilateral moderate severe neural foraminal stenosis at And L1 L2-L5 S1 due to a degenerative disc bulge and bony hypertrophy. Follow-up with orthopedics as outpatient Hypertension Continue losartan monitor BP H/O Asthma mild persistent Continue home inhalers GERD Continue Protonix DVT Px: Eliquis Code Status Full code Disposition Home Admission and Anticipated Discharge Date Admission Date: August 22, 2023 Subjective Patient is seen and examined at bedside Reports minimal dyspnea on exertion but otherwise feels well Saturating well on room air Denies any bleeding issues while on IV heparin Also denies any chest pain, dizziness, nausea, vomiting, abdominal pain Plan to be discharged home today Review of Systems Review of Systems: All systems reviewed & are unremarkable except as noted in Subjective Physical Exam Physical Exam: Physical Exam: Vitals signs as noted above General Appearance:Moderately built and nourished, no apparent distress Head: normocephalic, Atraumatic Eyes: normal inspection, EOMI Neck: supple, Trachea midline Respiratory/Chest: Normal breath sounds, CTA, No accessory muscle use Cardiovascular: S1, S2, No murmur Abdomen/GI:Soft, Non tender, Bowel sounds present Extremities/Musculoskeletal:normal inspection, no edema, Left hip surgical site, mild edema Neurologic/Psych:AAOX3, grossly no focal neurological deficits Skin: normal color, warm Results & Data Results & Data Vital Signs (Past 12 Hours) Vital Signs Temp Pulse Pulse Resp BP Pulse Ox O2 Del Method 08/23/23 12:08 86 L Room Air 08/23/23 11:36 37.3 C 78 18 128/78 95 Room Air 08/23/23 07:58 36.9 C 83 18 138/68 95 Room Air 08/23/23 05:52 66 08/23/23 02:56 36.8 C 71 20 137/73 96 Room Air Laboratory Results Short CBC 08/23/23 Range/Units 05:18 WBC 5.21 (4.8-10.8) K/ul Hgb 11.9 L (14.0-18.0) g/dl Hct 35.8 L (42.0-52.0) % Plt Count 198 (130-400) K/uL BMP 08/23/23 05:18 Sodium 140 Potassium 3.8 Chloride 109 H Carbon Dioxide 24 BUN 17 Creatinine 0.90 Glucose 104 H Calcium 8.7
--- NOTE | 2023-08-23 14:11 | Discharge Summary ---
Date of Service August 23, 2023 Admission HPI Per Admitting Provider 53-year-old male with past med history significant for chronic allergic rhinitis, mild persistent asthma, hypertension, degenerative disc disease, osteoarthritis left hip, s/p left hip replacement on August 07, 2023 comes in because of syncope and found to have acute PE. Patient states he got up and was going to bathroom when he felt dizzy and then passed out in the bathroom. He thinks he hit his head. He does not know how long he laid down. His noticed that he fell down. And brought him here and found to acute PE. Has some mild headache. No blurred vision. No runny nose or sore throat. No coug h. Denies any chest pain or shortness of breath. No fevers. After getting up from fall felt nauseous. No abdominal pain. Constipated. Normal micturition. No fevers. Some pain at the surgical site. Currently resting comfortably and hemodynamically stable. Past medical history. As mentioned above Past surgical history. Appendectomy. Left hip replacement. Social history. . No smoking. No alcohol use. No drug use. Family history. Father had diabetes. Heart disease. Mother had diabetes. Admission Exam Per Admitting Provider General- Not in distress Head- atraumatic Eyes- PERRL. ENT- oropharynx clear Neck- supple, no JVD. Lungs- clear to auscultation no wheezing or crackles. Heart- regular rhythm; no murmur, no gallop, no rub appreciated Abdomen- normal bowel sounds, soft, nontender, no distension. Extremities- no pretibial edema, no erythema seen. Neuro- alert, oriented x 3; PERRL, no facial palsy; no dysarthria; moves extremities. Skin- warm & dry Principal Diagnosis Syncope and collapse Acute pulmonary embolism Discharge Data Allergies Allergy/AdvReac Type Severity Reaction Status Date / Time diclofenac AdvReac Intermediate Gastrointestinal Verified 08/07/23 05:37 Upset Consultations 08/22/23 08:00 Consult Cardiology Routine Procedures Performed Laboratory Results WBC 5.21 K/ul (4.8-10.8) 08/23/23 05:18 RBC 4.10 M/uL (4.70-6.10) L 08/23/23 05:18 Hgb 11.9 g/dl (14.0-18.0) L 08/23/23 05:18 Hct 35.8 % (42.0-52.0) L 08/23/23 05:18 MCV 87.3 fL (80.0-100.0) 08/23/23 05:18 MCH 29.0 pg (25.0-34.0) 08/23/23 05:18 MCHC 33.2 g/dL (32.0-36.0) 08/23/23 05:18 RDW Std Deviation 40.6 fL (36.4-46.3) 08/23/23 05:18 RDW Coeff of [place] 13.0 % (11.5-14.5) 08/23/23 05:18 Plt Count 198 K/uL (130-400) 08/23/23 05:18 MPV 9.2 fL (9.4-12.4) L 08/23/23 05:18 Immature Gran % (Auto) 0.2 % 08/23/23 05:18 Neut % (Auto) 71.6 % 08/23/23 05:18 Lymph % (Auto) 19.4 % 08/23/23 05:18 [place] % (Auto) 8.8 % 08/23/23 05:18 Eos % (Auto) 0.0 % 08/23/23 05:18 Baso % (Auto) 0.0 % 08/23/23 05:18 Neut # (Auto) 3.73 K/uL (1.40-6.50) 08/23/23 05:18 Lymph # (Auto) 1.01 K/uL (1.20-3.40) L 08/23/23 05:18 Norton # (Auto) 0.46 K/uL (0.11-0.59) 08/23/23 05:18 Eos # (Auto) 0.00 K/uL (0.00-0.50) 08/23/23 05:18 Baso # (Auto) 0.00 K/uL (0.00-0.20) 08/23/23 05:18 Immature Gran # (Auto) 0.01 K/uL (0.01-0.20) 08/23/23 05:18 PT 10.9 Seconds (9.0-12.0) 08/22/23 01:10 INR 1.0 (0.9-1.1) 08/22/23 01:10 APTT 28 Seconds (21-31) 08/22/23 01:10 PTT Ratio 1.0 08/22/23 01:10 D-Dimer 38417 ug/L FEU (0-500) H* 08/22/23 01:10 Heparin Anti-Xa, Unfract 0.63 IU/ml (0.3-0.7) 08/23/23 05:18 Sodium 140 mmol/L (136-145) 08/23/23 05:18 Potassium 3.8 mmol/L (3.5-5.1) 08/23/23 05:18 Chloride 109 mmol/L (98-107) H 08/23/23 05:18 Carbon Dioxide 24 mmol/L (21-32) 08/23/23 05:18 Anion Gap 7 (3-11) 08/23/23 05:18 BUN 17 mg/dl (6-23) 08/23/23 05:18 Creatinine 0.90 mg/dl (0.6-1.4) 08/23/23 05:18 Est Cr Clr Drug Dosing 109.2 ml/min 08/23/23 05:18 Est GFR ( Amer) 113.4 ml/min 08/23/23 05:18 Est GFR (Non-Af Amer) 97.9 ml/min 08/23/23 05:18 BUN/Creatinine Ratio 18.9 (10-20) 08/23/23 05:18 Glucose 104 mg/dl (70-99(Fasting)) H 08/23/23 05:18 Calcium 8.7 mg/dl (8.6-10.3) 08/23/23 05:18 Magnesium 1.9 mg/dl (1.7-2.4) 08/23/23 05:18 Total Bilirubin 0.5 mg/dl (0.2-1.0) 08/22/23 01:10 AST 21 U/L (13-39) 08/22/23 01:10 ALT 24 U/L (7-52) 08/22/23 01:10 Alkaline Phosphatase 114 U/L (34-104) H 08/22/23 01:10 Troponin I High Sens 2.8 pg/ml (0-20) 08/22/23 14:29 Total Protein 6.8 gm/dl (6.0-8.3) 08/22/23 01:10 Albumin 4.4 gm/dl (3.4-5.0) 08/22/23 01:10 Globulin 2.4 gm/dl (2.5-4.0) L 08/22/23 01:10 Albumin/Globulin Ratio 1.8 (0.9-2) 08/22/23 01:10 Urine Color Yellow 08/22/23 Unknown Urine Appearance Clear (Clear) 08/22/23 Unknown Urine pH 7.5 (4.5-7.5) 08/22/23 Unknown Ur Specific [place] 1.040 (1.000-1.030) H 08/22/23 Unknown Urine Protein Negative (Negative) 08/22/23 Unknown Urine Glucose (UA) Negative (Negative) 08/22/23 Unknown Urine Ketones Negative (Negative) 08/22/23 Unknown Urine Blood Negative (Negative) 08/22/23 Unknown Urine Nitrite Negative (Negative) 08/22/23 Unknown Urine Bilirubin Negative (Negative) 08/22/23 Unknown Urine Urobilinogen Negative (Negative) 08/22/23 Unknown Ur Leukocyte Esterase Negative (Negative) 08/22/23 Unknown Impressions Abdomen/Pelvis CT 08/22/23 02:45 Exam(s): CT ABDOMEN + PELVIS With Contrast IV Amt: 118 ml optiray 320 EXAM: CT Abdomen and Pelvis With Intravenous Contrast CLINICAL HISTORY: Reason for exam: Trauma, left sided abdominal and hip pain. TECHNIQUE: Axial computed tomography images of the abdomen and pelvis with intravenous contrast. CTDI is 27.8 mGy and DLP is 1412.11 mGy-cm. Automated exposure control was utilized for the study. A dose lowering technique was utilized adhering to the principles of ALARA. CONTRAST: Patient received 118 ml optiray 320 of IV contrast COMPARISON: No relevant prior studies available. FINDINGS: Lung bases: branching nodular opacities at the left lower lobe. ABDOMEN: Liver: Unremarkable. No mass. Gallbladder and bile ducts: Unremarkable. No calcified stones. No ductal dilation. Pancreas: Unremarkable. No mass. No ductal dilation. Spleen: Unremarkable. No splenomegaly. Adrenals: Unremarkable. No mass. Kidneys and ureters: Unremarkable. No solid mass. No hydronephrosis. Stomach and bowel: Unremarkable. No obstruction. No mucosal thickening. PELVIS: Appendix: No findings to suggest acute appendicitis. Bladder: Unremarkable. No mass. Reproductive: Unremarkable as visualized. ABDOMEN and PELVIS: Intraperitoneal space: Unremarkable. No free air. No significant fluid collection. Bones/joints: Postoperative changes left hip arthroplasty moderate sized fluid collection about the left hip with subtle rim enhancement . Surgical clips overlying the left hip. No acute fracture. No dislocation. Soft tissues: Unremarkable. Vasculature: Unremarkable. No abdominal aortic aneurysm. Lymph nodes: Unremarkable. No enlarged lymph nodes. IMPRESSION: 1. Postoperative changes left hip arthroplasty with small amount of fluid adjacent to the left hip arthroplasty. This demonstrates mild rim enhancement. This may be secondary to the immediate postoperative state. No acute osseous pathology. 2. Branching nodular opacities involving the left lower lobe likely infectious or inflammatory etiology. Electronically signed by: Clarence Mackay MD 08/22/23 03:[address] 08/22/23 02:45 Exam(s): CT C SPINE EXAM: CT Cervical Spine Without Intravenous Contrast CLINICAL HISTORY: Reason for exam: Trauma. TECHNIQUE: Axial computed tomography images of the cervical spine without intravenous contrast. CTDI is 27.02 mGy and DLP is 933.25 mGy-cm. Automated exposure control was utilized for the study. A dose lowering technique was utilized adhering to the principles of ALARA. COMPARISON: No relevant prior studies available. FINDINGS: No fracture or subluxations are noted. The vertebral body heights and alignment are preserved. No prevertebral soft tissue swelling. Note is made of multilevel cervical spondylosis with varying degrees of central canal and foramina stenoses. IMPRESSION: 1. No cervical fractures. 2. Cervical spondylosis with varying degrees of central canal and foramina stenoses. Electronically signed by: Clarence Mackay MD 08/22/23 03:48 AM Chest CTA 08/22/23 02:45 CR Exam(s): CTA CHEST IV Amt: 118 ml optiray 320 EXAM: CT Angiography Chest With Intravenous Contrast CLINICAL HISTORY: Reason for exam: PE. TECHNIQUE: Axial computed tomographic angiography images of the chest with intravenous contrast. CTDI is 27.8 mGy and DLP is 1412.11 mGy-cm. Automated exposure control was utilized for the study. A dose lowering technique was utilized adhering to the principles of ALARA. MIP reconstructed images were created and reviewed. COMPARISON: No relevant prior studies available. FINDINGS: Pulmonary arteries: Right lower lobe subsegmental pulmonary emboli. Right upper lobe subsegmental pulmonary emboli. Left lower lobe subsegmental pulmonary emboli. No large central pulmonary embolus. No evidence of right heart strain. Aorta: No acute findings. No thoracic aortic aneurysm. Lungs: Unremarkable. No mass. No consolidation. Pleural space: Unremarkable. No significant effusion. No pneumothorax. Heart: Unremarkable. No cardiomegaly. No significant pericardial effusion. No evidence of RV dysfunction. Bones/joints: No acute fracture. No dislocation. Soft tissues: Unremarkable. Lymph nodes: Unremarkable. No enlarged lymph nodes. IMPRESSION: Subsegmental pulmonary emboli involving the right lower, right upper, and left lower lobe pulmonary arteries Communications: Call Doctor Pulmonary Embolism Electronically signed by: Clarence Mackay MD 08/22/23 04:[address] 08/22/23 02:45 Exam(s): CT HEAD Without Contrast EXAM: CT Head Without Intravenous Contrast CLINICAL HISTORY: Reason for exam: Trauma, syncope. TECHNIQUE: Axial computed tomography images of the head/brain without intravenous contrast. CTDI is 24.2 mGy and DLP is 511.4 mGy-cm. Automated exposure control was utilized for the study. A dose lowering technique was utilized adhering to the principles of ALARA. COMPARISON: No relevant prior studies available. FINDINGS: Brain: Unremarkable. No hemorrhage. No significant white matter disease. No edema. Ventricles: Unremarkable. No ventriculomegaly. Bones/joints: Unremarkable. No acute fracture. Soft tissues: Unremarkable. Sinuses: Unremarkable as visualized. No acute sinusitis. Mastoid air cells: Unremarkable as visualized. No mastoid effusion. IMPRESSION: Normal head/brain CT. Electronically signed by: Clarence Mackay MD 08/22/23 04:[address] 08/22/23 02:45 Exam(s): CT L SPINE With Contrast IV Amt: 118 ml optiray 320 EXAM: CT Lumbar Spine With Intravenous Contrast CLINICAL HISTORY: Reason for exam: Trauma. TECHNIQUE: Axial computed tomography images of the lumbar spine with intravenous contrast. CTDI is 27.02 mGy and DLP is 933.25 mGy-cm. Automated exposure control was utilized for the study. A dose lowering technique was utilized adhering to the principles of ALARA. CONTRAST: Patient received 118 ml optiray 320 of IV contrast COMPARISON: No relevant prior studies available. FINDINGS: Vertebrae: Unremarkable. No acute fracture. Discs/spinal canal/neural foramina: Bilateral moderate severe neural foraminal stenosis at And L1 L2-L5 S1 due to a degenerative disc bulge and bony hypertrophy. Soft tissues: Unremarkable. IMPRESSION: Bilateral moderate severe neural foraminal stenosis at And L1 L2-L5 S1 due to a degenerative disc bulge and bony hypertrophy. Electronically signed by: Clarence Mackay MD 08/22/23 04:05 AM Venous Doppler Study 08/22/23 07:39 US venous doppler LE RT HISTORY: 53 years-old Male acute PE. DVT? Acute pain and swallowing of the right lower leg COMPARISON: None TECHNIQUE: Multiple real-time sonographic images of the right lower extremity deep venous structures were obtained assessing grayscale appearance, color and spectral flow. FINDINGS: Normal flow, compressibility, phasicity and augmentation. IMPRESSION: No sonographic evidence of deep venous thrombosis. ACT 112: Negative or not required by law. The above report was generated using voice recognition software. It may contain grammatical, syntax or spelling errors. Electronically signed by: Abhishek Mccormack M.D. 08/22/2023 10:15 AM Ordered Studies 08/22/23 02:45 CT abd pelvis IV con only Stat CT angio chest PE protocol Stat CT cervical spine wo con Stat CT head/brain wo con Stat CT lumbar spine w con Stat US venous doppler LE LT Stat 08/22/23 07:39 US venous doppler LE RT Routine Hospital Course (1) Syncope and collapse: Patient is a 53 yr male with H/O Chronic allergic rhinitis, mild persistent asthma, hypertension, degenerative disc disease, osteoarthritis left hip, s/p left hip replacement on August 07, 2023 comes in because of syncope and found to have acute PE. Patient also reports a syncopal episode resulting in fall. Syncope and collapse Possibly from PE --CT head: Normal head/brain CT. --ECHO: Left ventricular systolic function is normal. EF 60 to 65%. Right ventricle is normal size. Right ventricular systolic function is normal. No significant valvular pathology. -- Monitor on telemetry-- no issues Appreciate Cardiology Input Needs 14-day ZIO monitor on discharge Needs follow-up with cardiology on discharge Acute PE Likely due to immobilization from recent left hip surgery --CTA:Subsegmental pulmonary emboli involving the right lower, right upper, and left lower lobe pulmonary arteries -- Left LE Doppler:No DVT within the left lower extremity. -- Right LE Doppler:No sonographic evidence of deep venous thrombosis. -- Echo as above Continue IV heparin>>> transition to Eliquis 2 Step: Does not qualify for supplemental oxygen Saturating well on room air S/P left hip total arthroplasty by Dr. Hernandez on 08/07/2023 --CT: Postoperative changes left hip arthroplasty with small amount of fluid adjacent to the left hip arthroplasty. This demonstrates mild rim enhancement. This may be secondary to the immediate postoperative state. No acute osseous pathology. Pain control Fall precautions Appreciate orthopedics input Lumbar spinal stenosis Incidental finding on lumbar CT --Lumbar CT:Bilateral moderate severe neural foraminal stenosis at And L1 L2-L5 S1 due to a degenerative disc bulge and bony hypertrophy. Follow-up with orthopedics as outpatient Hypertension Continue losartan monitor BP H/O Asthma mild persistent Continue home inhalers GERD Continue Protonix DVT Px: Eliquis Code Status Full code Disposition Home Total Time Total Time Spent Total Time Spent (In Minutes): 65 minutes Discharge Plan Discharge Items Patient Disposition: Home - Self-Care Reason For Visit: SYNCOPE, PE Discharge Diagnosis: Syncope and collapse Acute pulmonary embolism Condition on Discharge: Good Activity: Per Instructions section Exercise/Sports: Wait until after follow-up appointment Non-emergency contact: Primary Care Provider and Surgeon Call non-emergency contact if: you have any medication questions, your pain is concerning for you and you have a fever Follow-up/Referrals: Elly Hawkins MD [Primary Care Provider] - (Date & Time 08/28/2023 10:20 AM Provider Elly Hawkins MD [facility] ) Diet: Heart Healthy Addtl Attending Provider Instructions: Follow-up with your primary care physician Dr. Hawkins on 08/28/2023 10:20 AM Follow-up with your orthopedic surgeon Dr. Hernandez as scheduled Follow-up with your director of residential services Dr. Dennison for outpatient ZIO monitor as advised. -- Start taking apixaban (Eliquis) 10 mg 2 times a day for 1 week and then take 5 mg 2 times a day --Duration of anticoagulation with apixaban to be determined by your primary care physician. Seek immediate medical attention if your symptoms reoccur or worsen Please take all medications as instructed on discharge list below. Please call if you have any questions or problems. You can reach a [facility] hospitalist on duty at [facility] 24 hours a day by calling [phone] Pending Studies at Discharge: No Stand-Alone Forms: [facility], Smoking Cessation Medications and DC Order Prescriptions: New Eliquis 5 mg tablet 10 mg PO BID Qty: 74 1RF Rx Instructions: Start taking apixaban (Eliquis) 10 mg two times a day for 1 week and then take 5 mg two times a day Continued aspirin 81 mg tablet,delayed release (DR/EC) 81 mg PO DAILY pantoprazole 40 mg tablet,delayed release (DR/EC) 40 mg PO DAILY gabapentin 300 mg capsule 300 mg PO BID montelukast 10 mg tablet 10 mg PO DAILY albuterol sulfate 90 mcg/actuation HFA aerosol inhaler 2 puff INHALATION Q4H PRN (Reason: Shortness Of Breath Or Wheezing) Trelegy Ellipta 100-62.5-25 mcg blister with device 1 inh INHALATION DAILY [place] 3 Fish Oil Capsule 1,000 mg PO DAILY benralizumab 30 mg/mL Auto-Injector 30 mg SUBCUT UD losartan 50 mg tablet 50 mg PO DAILY Discharge Orders: Discharge Order (Routine); Ordered 08/23/23 Ordered By: Serafin Workman Admission Data Admit Date/Time: 08/22/23 06:02 Attending Provider: Serafin Workman Admit Provider: Sudarshan Aguilar Primary Care Provider: Elly Hawkins Other Providers: Jasson Dennison
== END 2023-08-23 15:39 | disposition home health service (06) | DRG 176 ==
LOC: ED 00:43 → EDINP 06:02 → INTOOBSV 06:02 → 2E 07:39